=== PATIENT | male | born 1950 | race Caucasian/White ===

== ENCOUNTER 2017-11-07 09:30 | Outpatient (CLI) | payer MEDICARE, SELFPAY ==
[2017-11-07 11:14] LABS: Anion Gap 11.6 mmol/L (3-11); BUN 25 mg/dL (7-18); CO2 26.4 mmol/L (21.0-32.0); CREATININE 1.59 mg/dL (0.70-1.30); Calcium 8.4 mg/dL (8.5-10.1); Chloride 102 mmol/L (98-107); Estimated GFR 43.38 (mL/min/1.73m2); Glucose 131 mg/dL (70-100); Potassium 4.1 mmol/L (3.5-5.1); Sodium 140 mmol/L (136-145)
== END 2017-11-07 09:50 ==
PROVIDERS: PCP Family Medicine; Visit Provider Family Medicine
DX: N18.3 Chronic kidney disease, stage 3 (moderate) (principal)
CPT/HCPCS: 36415; 80048

== ENCOUNTER 2020-03-06 08:43 | Outpatient (CLI) | payer MEDICARE, SELFPAY ==
[2020-03-07 13:30] LABS: COVID-19 RT-PCR UVMMC Result Positive (Negative)
== END 2020-03-06 09:03 ==
PROVIDERS: PCP Family Medicine; Visit Provider Family Medicine
DX: Z20.822 Contact with and (suspected) exposure to COVID-19 (principal)
CPT/HCPCS: U0003

== ENCOUNTER 2020-03-08 03:26 | Outpatient (CLI) | payer MEDICARE, SELFPAY ==
[2020-03-08] VITALS (9 sets, daily range): BP systolic 106–139; BP diastolic 63–72; PULSE 87–94; RESP 16–20; TEMP 36.6–37.1; O2SAT 93–97
[2020-03-08] MEDS: Normal Saline 500 ML 30 ML IV (08:53)
[2020-03-08] MEDS: Normal Saline Flush 10 ML SYR IVP (08:54)
== END 2020-03-08 03:46 ==
PROVIDERS: PCP Family Medicine; Visit Provider Family Medicine
DX: U07.1 COVID-19 (principal)
CPT/HCPCS: 96365

== ENCOUNTER 2020-05-15 04:33 | Outpatient (CLI) | payer MEDICARE, SELFPAY ==
[2020-05-15 10:31] LABS: ALT 50 U/L (16-63); AST 19 U/L (15-37); Albumin 3.7 g/dL (3.4-5.0); Alkaline Phosphatase 93 U/L (46-116); Anion Gap 6.2 mmol/L (3-11); BUN 23 mg/dL (7-18); Bilirubin, Total 0.5 mg/dL (0.2-1.0); CO2 29.8 mmol/L (21.0-32.0); CREATININE 1.8 mg/dL (0.70-1.30); Calcium 8.6 mg/dL (8.5-10.1); Calculated LDL 38 mg/dL (<100); Chloride 105 mmol/L (98-107); Cholesterol 100 mg/dL (<200); Estimated GFR 37.27 (mL/min/1.73m2); Glucose 130 mg/dL (74-106); HDL Cholesterol 33 mg/dL (40-60); Potassium 4.3 mmol/L (3.5-5.1); Sodium 141 mmol/L (136-145); Total Protein 6.8 g/dL (6.4-8.2); Triglyceride 145 mg/dL (<150)
[2020-05-15 10:42] LABS: Uric Acid 8.2 mg/dL (3.5-7.2)
== END 2020-05-15 04:34 | disposition home or self-care (01) ==
LOC: LBO 04:33
PROVIDERS: PCP Family Medicine; Visit Provider Family Medicine
DX: E11.9 Type 2 diabetes mellitus without complications (principal); I10 Essential (primary) hypertension; M10.9 Gout, unspecified
CPT/HCPCS: 36415; 80053; 80061; 84550

== ENCOUNTER → 2021-01-29 10:24 | Outpatient (BNVA) | payer MEDICARE, SELFPAY | PROVIDERS: PCP Family Medicine; Referring Provider Family Medicine; Visit Provider Physical Therapy Assistant | DX: Z12.11 Encounter for screening for malignant neoplasm of colon (principal); Z86.010 Personal history of colon polyps; I10 Essential (primary) hypertension; E11.22 Type 2 diabetes mellitus with diabetic chronic kidney disease; N18.30 Chronic kidney disease, stage 3 unspecified ==

== ENCOUNTER 2021-02-02 02:59 | Outpatient (CLI) | payer MEDICARE, SELFPAY ==
[2021-02-02 11:13] LABS: Source Nasal/Nares
[2021-02-02 14:01] LABS: COVID-19 PCR Negative (Negative)
== END 2021-02-02 03:00 | disposition home or self-care (01) ==
LOC: LBO 03:00
PROVIDERS: PCP Family Medicine; Visit Provider Surgery
DX: Z20.822 Contact with and (suspected) exposure to COVID-19 (principal); Z01.812 Encounter for preprocedural laboratory examination
CPT/HCPCS: 87635

== ENCOUNTER 2021-02-05 08:20 | Day surgery (SDC) | payer MEDICARE, SELFPAY ==
--- NOTE | 2021-02-05 06:43 | COLE_ITS ---
Colonoscopy Report Date of procedure: 02/05/21 Pre-op diagnosis general: Hx of colon polyps Post-op diagnosis procedure note: same (multiple polyps and diverticulosis) Procedure: Colonoscopy with polypectomy Surgeon: Daniela Cummins Anesthesia Type: General:No Airway (Tin Beltre, BRANDT) Estimated blood loss (mL): 3 Pathology: other (cecal polyp, ascending polyps x3, transverse polyp) Complications: None Disposition: same day Indications: The patient is here for Colonoscopy pre-op. His last screening was in 2015 and was remarkable for tubular adenoma. He has no family history of colon cancer. He has not had any bowel habit changes. -Discussed colonoscopy bowel prep as well as the procedure. Discussed possible complications of the procedure to include bleeding, pain, perforation, missed small lesion/polyp, sore throat, aspiration and adverse reaction to the medica tions. Questions were answered to patient?s satisfaction. No guarantees were implied or given. Prep: Miralax/Dulcolax Procedure Start Time: 10:02 Procedure End Time: 11:01 Retraction Time: 42 minutes Findings: multiple sessile polyps. The cecal polyp and proximal ascending polyp were both >10 mm in size mild diverticulosis Procedure Description: After informed consent was obtained the patient was taken to the procedure room and placed in a left decubitous position. Monitors were applied and a time out was done. The patients name, date of , procedure, allergies to medications and metal in their body was reviewed. The patient was then sedated. Once sedated and comfortable a rectal exam was done. External exam was normal. Internal exam revealed a normal sphincter tone and no palpable masses. The prostate felt smooth and enlarged. The scope was then introduced and retro-flexed. No internal hemorrhoids, polyps or masses were identified on retro-flexion. The scope was then advanced to the cecum without difficulty. The ileocecal vlave and appendiceal orifice were identified. The prep was good. The scope was then slowly retracted over 42 minutes back into the rectum. Polyps were removed with hot snare in the cecum and ascending colon ad with cold forceps in the ascending colon x2 and transverse colon. There was mild descending and sigmoid diverticulosis noted. The scope was removed and the patient was woken up and taken back to Same day surgery in stable condition. The patient tolerated the procedure well and there were no immediate complications. Follow up: The patient should follow up in 1-3 years unless they develop changes in bowel habits or other new gastrointestinal complaints.
--- NOTE | 2021-02-05 06:44 | W.PM.DSUDISC ---
Discharge Plan Disposition Patient Disposition: HOME Condition: Good Discharge Details Reason For Visit: Colonoscopy Attending Provider: Daniela Cummins Primary Care Provider: Teofilo Finley Home Meds and New Rx's Prescriptions: Continued aspirin 81 mg tablet,delayed release (DR/EC) 81 mg PO DAILY Qty: 90 RF: 3 (DME) lancets [OneTouch UltraSoft Lancets] 1 EACH misc 1 ea Miscellaneous TID RF: 0 Excedrin Migraine 1 EACH tablet 1 ea PO PRN RF: 0 cholecalciferol (vitamin D3) 1,000 UNIT tablet 1,000 unit PO DAILY RF: 0 (DME) OneTouch Ultra Test 1 EACH strip 1 ea Miscellaneous DAILY Qty: 100 RF: 3 mometasone 0.1 % cream 1 applic topical DAILY PRN (Reason: itching) RF: 0 allopurinol 100 mg tablet 50 mg PO DAILY Qty: 45 RF: 3 atorvastatin 20 mg tablet 20 mg PO HS Qty: 90 RF: 3 metformin 850 mg tablet 850 mg PO BID Qty: 180 RF: 3 irbesartan-hydrochlorothiazide 150-12.5 mg tablet 1 tab PO DAILY Qty: 90 RF: 3 Discontinued polyethylene glycol 3350 17 gram/dose powder 238 g PO ONCE Qty: 238 RF: 0 bisacodyl [Dulcolax (bisacodyl)] 5 mg tablet,delayed release (DR/EC) 5 mg PO ONCE Qty: 4 RF: 0 Discharge Instructions Additional Instructions: Findings: Multiple polyps diverticulosis Follow up: will depend on final pathology Please call if you develop: fevers >101.5 Nausea or Vomiting Abdominal pain that is not transient Rectal bleeding that is more then a tbsp A hard abdomen and inability to pass gas DAY SURGERY UNIT POST ENDOSCOPY INSTRUCTIONS Instructions for everyone who is given Anesthesia: For your safety, please do the following for the next 24 Hours: a. Do not drive or operate dangerous equipment b. Do not drink alcohol beverages or use any recreational drugs for the first 24 hours or while taking pain medications. The medications in your body may have a reaction that can be dangerous. c. Do not make any important decisions or sign any important papers 1. Generally there are no restrictions on your activity after a day or so has gone by, but you may feel a bit fatigued for a few days. 2. After you arrive home you may have a light meal and return to a normal diet as you can tolerate it without feeling sick to your stomach. 3. After surgery, you may feel pain or discomfort. This should be only transient, but if it persists please contact your doctor. 4. If there are any questions regarding the findings of your procedure, please feel free to contact your doctor. 6. If you are unable to contact your doctor with a problem, contact the hospital at [phone]. 7. Continue all your regular medications unless directed otherwise. I understand the above instructions and have no questions. Signature of Patient or Responsible Adult Escort Date/Time Name of Responsible Adult Escort Signature of Nurse Date/Time Activity:: Activity as Tolerated Diet:: high fiber diet Discharge Orders Discharge Orders: Discharge Order (Routine); Ordered 02/05/21 Ordered By: Daniela Cummins
[2021-02-05 08:54] VITALS: BP 140/79; PULSE 98; RESP 16; TEMP 36.5; O2SAT 97
[2021-02-05] MEDS: Lactated Ringers 1,000 ML 80 ML IV (09:15)
--- NOTE | 2021-02-05 09:48 | ANES.PREOP_ITS ---
General Info Date of Service Date Performed: 02/05/21 Height: 5 ft 11.75 in Weight: 104 kg Body Mass Index (BMI): 31.3 Surgical Procedure: Operation Date: 02/05/21 10:05 Proposed Procedures Side Surgeon p Colonoscopy Daniela Cummins MD Meds Allergies and Home Medications Allergies Allergy/AdvReac Type Severity Reaction Status Date / Time diltiazem AdvReac Intermediate urinary Verified 02/05/21 08:49 frequency lisinopril AdvReac Intermediate COUGH Verified 02/05/21 08:49 Home Medication Medication Instructions Recorded Excedrin Migraine 1 ea PO PRN 06/03/12 lancets [OneTouch UltraSoft ea 06/03/12 Lancets] cholecalciferol (vitamin D3) 1,000 unit PO DAILY 07/19/13 MyDROBEuch Ultra Test #100 strip 05/20/14 aspirin 81 mg tablet,delayed 81 mg PO DAILY #90 tab 06/18/18 release mometasone 0.1 % topical cream 1 applic TOPICAL DAILY PRN 03/28/20 allopurinol 100 mg tablet 50 mg PO DAILY #45 tab 08/28/20 atorvastatin 20 mg tablet 20 mg PO HS #90 tab 10/16/20 metformin 850 mg tablet 850 mg PO BID #180 tab 10/16/20 irbesartan 150 1 tab PO DAILY #90 tab 11/27/20 mg-hydrochlorothiazide 12.5 mg tablet bisacodyl 5 mg tablet,delayed 5 mg PO ONCE #4 tab 01/29/21 release polyethylene glycol 3350 17 238 g PO ONCE #238 g 01/29/21 gram/dose oral powder Current Visit Medications: Current Medications Generic Name Dose Route Start Last Admin Trade Name Freq PRN Reason Stop Dose Admin Hyoscyamine Sulfate 0.125 mg 02/05/21 06:45 Hyoscyamine 0.125 Mg Sl/Oral/Chew SL DIRECTED PRN Ringer's Solution 1,000 mls @ 80 mls/hr 02/05/21 06:00 02/05/21 09:15 IV 03/04/21 23:59 80 mls/hr INFUSION REILLY Administration IV Miscellaneous Supplies 1 each 02/05/21 06:00 Iv Access IV 03/04/21 23:59 DIRECTED REILLY Ondansetron HCl 4 mg 02/05/21 06:45 Ondansetron 4 Mg/2 Ml Vial IVP Q4H PRN PRN Nausea / Vomiting Sodium Chloride 0 ml 02/05/21 06:00 Normal Saline Flush 10 Ml Syr IV 03/04/21 23:59 PRN PRN Sodium Chloride 0 ml 02/05/21 06:00 Normal Saline 10 Ml Vial IJ 03/04/21 23:59 DIRECTED PRN Sterile Water 0 ml 02/05/21 06:00 Water,Injection,Sterile 10 Ml Vial IJ 03/04/21 23:59 DIRECTED PRN PFSH Active Problems Active Problems: Problem Status Onset Code Undiagnosed cardiac murmurs 10/17/98 R01.1 Cataracts, bilateral 03/13/15 H26.9 Chronic kidney disease, stage III (moderate) 04/25/10 N18.3 Dysmetabolic syndrome X 06/16/98 E88.81 Essential hypertension 05/17/98 I10 Hyperlipidemia 06/03/11 E78.5 Other atopic dermatitis 06/03/11 L20.89 Obesity (BMI 30.0-34.9) 06/03/11 E66.9 Other atopic dermatitis 06/03/11 L20.89 Proteinuria 10/02/12 R80.9 Type 2 diabetes mellitus without complications 03/13/15 E11.9 Unspecified nontoxic nodular goiter 11/19/11 E04.9 Axillary hidradenitis suppurativa 09/20/13 L73.2 Hammer toes of both feet M20.41, M20.42 Post-void dribbling N39.43 Surgical History Surgical History (Updated 02/05/21 @ 08:57 by Nita Dexter) Colonoscopy - IV Sedation (05/19/15) Dr Thayer-fragments of tubular adenoma Hx of hand surgery L palm, work accident Tobacco Smoking/Tobacco Use Status: Former Tobacco Use Alcohol Alcohol Intake: former Substance Use Substance use: Never Substance use type: does not use Vital Signs and Lab Results Vital Signs Most Recent Vital Signs in EMR: Most Recent Vital Signs Temp Pulse Resp BP Pulse Ox 36.5 C 98 H 16 140/79 97 02/05/21 08:54 02/05/21 08:54 02/05/21 08:54 02/05/21 08:54 02/05/21 08:54 Point of Care Results Point of Care Results: Finger Stick Blood Glucose 157 02/05/21 08:32 Lab Results Blood Type / Crossmatch: No Data to Display Complete Blood Count: No Data to Display Complete Metabolic Panel: No Data to Display Liver Function Panel: No Data to Display Coagulation Panel: No Data to Display Cardiac Panel: No Data to Display Arterial Blood Gas: No Data to Display Venous Blood Gas: No Data to Display Pancreas Panel: No Data to Display Thyroid Panel: No Data to Display Infectious Disease: Coronavirus (COVID-19)(PCR) Negative (Negative) 02/02/21 09:04 02/02/21 Coronavirus 2019 Source Nasal/Nares 02/02/21 09:04 02/02/21 Blood Cultures: No Data to Display Toxicology Panel: No Data to Display Anesthesia Assessment and Plan Anesthesia History Personal History: No History of Anesthesia Complications Family History: No Family History of Anesthesia Complications Exercise Tolerance Exercise Tolerance: Metabolic Equivalents>4 Pertinent Negatives Pertinent Negatives: No Symptoms of GERD, No Major Cardiovascular Symptoms or Complaints, No Major Pulmonary Symptoms or Complaints and No History of CVA/TIA Cardiac & Pulmonary Exam Cardiac Exam: Normal S1/S2 Heart Sounds Pulmonary Exam: Clear Bilateral Breath Sounds Implantable Cardiac Device Does patient have a Pacemaker or an ICD?: No Airway Exam Known Difficult Airway: No Mallampati Class: 4 Mouth Opening: Normal (> 3cm) Thyromental Distance: Greater than 3 cm Neck Range of Motion: Full ROM Neck Circumference: Thick Teeth Condition: Normal Dentition and Edentulous ASA Classification ASA Score: ASA 2 Emergency Case?: No NPO Status NPO Status: NPO Clears >2 hours, Solids >8 hours Anesthesia Plan Resuscitation Status: Full Code Anesthesia Technique: General Anesthesia Airway Planned: Natural Airway Monitors Used: Standard Monitors
[2021-02-05 09:49] VITALS: BMI 31.3
--- NOTE | 2021-02-05 10:20 | BOWEL_PTH ---
PATIENT: Dae Marrero LOC: [facility] U#:[id number] AGE/SX: 70/M ROOM: RE02/05/[address]: Daniela Cummins MD : [id number] BED: DIS: 02/05/2021 SPEC #: [id number] RECD: 02/05/21 13:02 STATUS: JUAN F REQ #: [id number] ANTHONY: 02/05/21 10:[address]: Daniela Cummins DEPT: Surgical Specimen RECD BY: Kellie Bautista ENTERED: 02/05/21 13:03 SP TYPE: Bowel OTHR DR: Teofilo Finley DO Tissues: 1 - BIOPSY BOWEL 2 - BIOPSY BOWEL 3 - BIOPSY BOWEL 4 - BIOPSY BOWEL Procedures: GROSS AND MICRO LEVEL 4 Comments: [id number]
[2021-02-05 11:08] VITALS: BP 118/58; PULSE 79; RESP 18; TEMP 36.4; O2SAT 94
--- NOTE | 2021-02-05 11:09 | W.ANESPOSTOP ---
Postoperative Evaluation Date, Time and Location Date Performed: 02/05/21 Time Performed: 11:09 Patient Location: Day Surgery Unit Vital Signs Most Recent Imported Vital Signs: Most Recent Vital Signs Temp Pulse Resp BP Pulse Ox 36.5 C 98 H 16 140/79 97 02/05/21 08:54 02/05/21 08:54 02/05/21 08:54 02/05/21 08:54 02/05/21 08:54 Most Recent Manually Entered Vital Signs: Adult Blood Pressure: 118/58 Heart Rate: 86 Respirations: 18 Oxygen Saturation (%): 94 Temperature (C): 36 C Pain Score (0-10 Scale): 0 Pain Score Most Recent Pain Score: Most Recent Pain Score Pain Level 0 02/05/21 08:54 Assessment Mental Status: Arousable with meaningful communication Airway and Respiratory Function: Patent airway with normal (patient baseline) respiratory exam Cardiovascular Function: Hemodynamically Stable Hydration Status: Adequately Hydrated Nausea & Vomiting: No Nausea or Vomiting Pain: Pt. Denies Any Pain Peripheral Nerve Block: Patient did not receive a nerve block
[2021-02-05 11:11] VITALS: BP 118/58; PULSE 86; RESP 18; TEMPC 36; O2SAT 94
[2021-02-05 11:37] VITALS: BP 125/71; PULSE 68; RESP 18; TEMP 36.2; O2SAT 96
[2021-02-05 12:19] VITALS: BP 123/69; PULSE 65; RESP 18; TEMP 36.3; O2SAT 96
== END 2021-02-05 12:12 | disposition home or self-care (01) ==
LOC: SUR 08:21
PROVIDERS: PCP Family Medicine; Visit Provider Surgery
PROC: 0DJD8ZZ Inspection of Lower Intestinal Tract, Via Natural or Artificial Opening Endoscopic (ICD-10-PCS; CPT 45378; principal; 2021-02-05 10:00)
DX: Z12.11 Encounter for screening for malignant neoplasm of colon (principal); D12.2 Benign neoplasm of ascending colon; D12.0 Benign neoplasm of cecum; D12.3 Benign neoplasm of transverse colon; K57.30 Diverticulosis of large intestine without perforation or abscess without bleeding; I12.9 Hypertensive chronic kidney disease with stage 1 through stage 4 chronic kidney disease, or unspecified chronic kidney disease; E11.22 Type 2 diabetes mellitus with diabetic chronic kidney disease; N18.30 Chronic kidney disease, stage 3 unspecified; Z86.010 Personal history of colon polyps
CPT/HCPCS: 45385; 45380; 88305

== ENCOUNTER 2021-02-15 03:04 | Outpatient (CLI) | payer MEDICARE, SELFPAY ==
[2021-02-15 14:44] LABS: Anion Gap 7.2 mmol/L (3-11); BUN 29 mg/dL (7-18); CO2 28.8 mmol/L (21.0-32.0); CREATININE 2.1 mg/dL (0.70-1.30); Calcium 8.9 mg/dL (8.5-10.1); Chloride 105 mmol/L (98-107); Glucose 169 mg/dL (74-106); Potassium 4.4 mmol/L (3.5-5.1); Sodium 141 mmol/L (136-145)
[2021-02-16 11:47] LABS: HIV-1/2 Ag & Ab Screen Negative (Negative)
== END 2021-02-15 03:05 | disposition home or self-care (01) ==
LOC: LBO 03:04
PROVIDERS: PCP Family Medicine; Visit Provider Family Medicine
DX: E11.9 Type 2 diabetes mellitus without complications (principal); Z11.4 Encounter for screening for human immunodeficiency virus [HIV]
CPT/HCPCS: 36415; 80048; 87389

== ENCOUNTER → 2022-01-01 09:14 | Outpatient (BNVA) | payer MEDICARE, SELFPAY | PROVIDERS: PCP Family Medicine; Referring Provider Family Medicine; Visit Provider Surgery | DX: Z86.010 Personal history of colon polyps (principal); Z12.11 Encounter for screening for malignant neoplasm of colon ==

== ENCOUNTER 2022-01-21 07:29 | Day surgery (SDC) | payer MEDICARE, SELFPAY ==
--- NOTE | 2022-01-21 06:27 | COLE_ITS ---
Date of service: 01/21/22 Time of Service: : Colonoscopy Report Date of procedure: 01/21/22 Pre-op diagnosis general: Colon Cancer Screening and Hx of colon polyps Post-op diagnosis procedure note: other (multiple polyps and diverticulosis) Procedure: Colonoscopy with polypectomy Surgeon: Daniela Cummins Anesthesia Type: General:No Airway Estimated blood loss (mL): 3 Pathology: other (Ascending polyps x5, transverse polyp x2 and sigmoid polyps x9) Complications: None Disposition: same day Indications: The patient? is a pleasant? 71-year-old male who is here to discuss another screening colonoscopy. ? His last colonoscopy was in 2020 and he was noted to have a sessile serrated adenoma in the ascending colon.? He also had a tubular adenoma in the cecum, ascending colon and transverse colon.? He denies any ramirez ges in bowel habits, melena, hematochezia, unintentional weight loss or family history of colon cancer.? The procedure and risks were discussed.? The prep was reviewed in detail.? Risks, benefits and complications have been reviewed. Complications include but are not limited to bleeding, pain, perforation, missed small lesion/polyp, sore throat, aspiration and adverse reaction to the medications. Questions were entertained and answered to their satisfaction and they wished to proceed. No guarantees were given or implied. Prep: Miralax/Dulcolax Procedure Start Time: Procedure End Time: 10:17 Retraction Time: 44 minutes Findings: multiple small polyps, all sessile moderate sigmoid diverticulosis Procedure Description: After informed consent was obtained the patient was taken to the procedure room and placed in a left decubitous position. Monitors were applied and a time out was done. The patients name, date of , procedure, allergies to medications and metal in their body was reviewed. The patient was then sedated. Once sedated and comfortable a rectal exam was done. External exam was normal. Internal exam revealed a normal sphincter tone and no palpable masses. The prostate felt smooth. The scope was then introduced and retro-flexed. No internal hemorrhoids, polyps or masses were identified on retro-flexion. The scope was then advanced to the cecum without difficulty. The ileocecal vlave and appendiceal orifice were identified. The prep was good. The scope was then slowly retracted over 44 minutes back into the rectum. Polyps were removed with cold forceps in the ascending colon x3, transverse colon x2 and sigmoid colon x9 and with cold snare in the ascending colon x2. There was moderate sigmoid diverticulosis noted. The scope was removed and the patient was woken up and taken back to Same day surgery in stable condition. The patient tolerated the procedure well and there were no immediate complications.
--- NOTE | 2022-01-21 06:28 | W.PM.DSUDISC ---
Date of service: 01/21/22 Time of Service: 10:27 Discharge Plan Disposition Patient Disposition: HOME Condition: Good Discharge Details Reason For Visit: Colonoscopy Attending Provider: Daniela Cummins Primary Care Provider: Teofilo Finley Home Meds and New Rx's Prescriptions: Continued (DME) lancets [OneTouch UltraSoft Lancets] 1 EACH misc 1 ea Miscellaneous TID Label Comments: pt. took BS at home, 167 Excedrin Migraine 1 EACH tablet 1 ea PO PRN cholecalciferol (vitamin D3) 1,000 UNIT tablet 1,000 unit PO DAILY (DME) OneTouch Ultra Test 1 EACH strip 1 ea Miscellaneous DAILY Qty: 100 Rx Instructions: 790.29; 277.7 Monitor abnormal blood sugar mometasone 0.1 % cream 1 applic topical DAILY PRN (Reason: itching) Rx Instructions: 03/28/20 Prescribed by ENT, Dr Zapata. Apply to affected area to ears daily prn allopurinol 100 mg tablet 50 mg PO DAILY Qty: 45 3RF irbesartan-hydrochlorothiazide 150-12.5 mg tablet 1 tab PO DAILY Qty: 90 3RF metformin 850 mg tablet 850 mg PO BID Qty: 180 3RF atorvastatin 20 mg tablet 20 mg PO HS Qty: 90 3RF Discontinued bisacodyl [Dulcolax (bisacodyl)] 5 mg tablet,delayed release (DR/EC) 5 mg PO ONCE Qty: 4 0RF Rx Instructions: Take according to provider's instructions for colonoscopy prep. peg 3350-electrolytes [Golytely] 236-22.74-6.74 -5.86 gram recon soln 240 ml PO Q10M Qty: 4000 0RF Rx Instructions: until fecal effluent is clear Discharge Instructions Instructions: Colorectal Polyps (DC), Diverticulosis (DC) Additional Instructions: Findings: multiple polyps diverticulosis Follow up: 3-5 years Please call if you develop: fevers >101.5 Nausea or Vomiting Abdominal pain that is not transient Rectal bleeding that is more then a tbsp A hard abdomen and inability to pass gas DAY SURGERY UNIT POST ENDOSCOPY INSTRUCTIONS Instructions for everyone who is given Anesthesia: For your safety, please do the following for the next 24 Hours: a. Do not drive or operate dangerous equipment b. Do not drink alcohol beverages or use any recreational drugs for the first 24 hours or while taking pain medications. The medications in your body may have a reaction that can be dangerous. c. Do not make any important decisions or sign any important papers 1. Generally there are no restrictions on your activity after a day or so has gone by, but you may feel a bit fatigued for a few days. 2. After you arrive home you may have a light meal and return to a normal diet as you can tolerate it without feeling sick to your stomach. 3. After surgery, you may feel pain or discomfort. This should be only transient, but if it persists please contact your doctor. 4. If there are any questions regarding the findings of your procedure, please feel free to contact your doctor. 6. If you are unable to contact your doctor with a problem, contact the hospital at [phone]. 7. Continue all your regular medications unless directed otherwise. I understand the above instructions and have no questions. Signature of Patient or Responsible Adult Escort Date/Time Name of Responsible Adult Escort Signature of Nurse Date/Time Activity:: Activity as Tolerated Diet:: As Tolerated
[2022-01-21 07:56] VITALS: BP 155/76; PULSE 75; RESP 16; TEMP 36; O2SAT 98
[2022-01-21] MEDS: Normal Saline 1,000 ML 80 ML IV (08:25)
--- NOTE | 2022-01-21 09:02 | ANES.PREOP_ITS ---
General Info Date of Service Date Performed: 01/21/22 Height: 5 ft 11.75 in Weight: 97.2 kg Body Mass Index (BMI): 29.2 Surgical Procedure: Operation Date: 01/21/22 09:05 Proposed Procedure Side Surgeon p Colonoscopy Daniela Cummins MD Meds Allergies and Home Medications Allergies Allergy/AdvReac Type Severity Reaction Status Date / Time diltiazem AdvReac Intermediate urinary Verified 01/21/22 08:02 frequency lisinopril AdvReac Intermediate COUGH Verified 01/21/22 08:02 Home Medication Medication Instructions Recorded [id number]-dzbuxesi 250 1 ea PO PRN 06/03/12 mg-250 mg-65 mg tablet (Excedrin Migraine) lancets (TTi [employer] InstrumentsTouch UltraSoft 06/03/12 Lancets) cholecalciferol (vitamin D3) 25 1,000 unit PO DAILY 07/19/13 mcg (1,000 unit) tablet blood sugar diagnostic (TTi [employer] InstrumentsTouch #100 strips 05/20/14 Ultra Test strips) mometasone 0.1 % topical cream 1 applic topical DAILY PRN itching 03/28/20 allopurinol 100 mg tablet 50 mg PO DAILY #45 tabs 08/09/21 irbesartan 150 1 tab PO DAILY #90 tabs 11/24/21 mg-hydrochlorothiazide 12.5 mg tablet atorvastatin 20 mg tablet 20 mg PO HS #90 tabs 12/31/21 metformin 850 mg tablet 850 mg PO BID #180 tabs 12/31/21 bisacodyl 5 mg tablet,delayed 5 mg PO ONCE #4 tabs 01/01/22 release (Dulcolax (bisacodyl)) peg 3350-electrolytes 236 240 ml PO Q10M colonoscopy prep 01/01/22 gram-22.74 gram-6.74 gram-5.86 #4,000 mL gram solution (Golytely) Current Visit Medications: Current Medications Generic Name Dose Route Start Last Admin Trade Name Freq PRN Reason Stop Dose Admin Hyoscyamine Sulfate 0.125 mg 01/21/22 06:29 Hyoscyamine 0.125 Mg Sl/Oral/Chew SL DIRECTED PRN Sodium Chloride 1,000 mls @ 80 mls/hr 01/21/22 06:00 01/21/22 08:25 Saline 1000ml Bag IV 02/01/22 23:59 80 mls/hr INFUSION REILLY Administration IV Miscellaneous Supplies 1 each 01/21/22 06:00 Iv Access IV 02/17/22 23:59 DIRECTED REILLY Ondansetron HCl 4 mg 01/21/22 06:29 Ondansetron 4 Mg/2 Ml Vial IVP Q4H PRN PRN Nausea / Vomiting Sodium Chloride 0 ml 01/21/22 06:00 Normal Saline Flush 10 Ml Syr IV 02/17/22 23:59 PRN PRN Sodium Chloride 0 ml 01/21/22 06:00 Normal Saline 10 Ml Vial IJ 02/17/22 23:59 DIRECTED PRN Sterile Water 0 ml 01/21/22 06:00 Water,Injection,Sterile 10 Ml Vial IJ 02/17/22 23:59 DIRECTED PRN PFSH Active Problems Active Problems: Problem Status Onset Code Screening for colon cancer Z12.11 Stiffness of right hip joint M25.651 Epidermoid cyst L72.0 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 Sessile colonic polyp K63.5 Undiagnosed cardiac murmurs 10/17/98 R01.1 Cataracts, bilateral 03/13/15 H26.9 Chronic kidney disease, stage III (moderate) 04/25/10 N18.3 Dysmetabolic syndrome X 06/16/98 E88.81 Hyperlipidemia 06/03/11 E78.5 Other atopic dermatitis 06/03/11 L20.89 Obesity (BMI 30.0-34.9) 06/03/11 E66.9 Proteinuria 10/02/12 R80.9 Type 2 diabetes mellitus without complications 03/13/15 E11.9 Unspecified nontoxic nodular goiter 11/19/11 E04.9 Axillary hidradenitis suppurativa 09/20/13 L73.2 Hammer toes of both feet M20.41, M20.42 Post-void dribbling N39.43 Medical History Medical History Essential hypertension (05/17/98) GOAL <130/80 Other atopic dermatitis (06/03/11) Surgical History Surgical History Colonoscopy - IV Sedation (05/19/15) 01/2021- Placido Thayer-fragments of tubular adenoma H/O removal of cyst (~10/2021) 10/30/21 follicular cyst mid back Hx of hand surgery L palm, work accident Tobacco Smoking/Tobacco Use Status: Former Tobacco Use Passive smoking exposure: No Alcohol Alcohol Intake: former Substance Use Substance use: Never Substance use type: does not use Vital Signs and Lab Results Vital Signs Most Recent Vital Signs in EMR: Most Recent Vital Signs Temp Pulse Resp BP Pulse Ox 36.0 C L 75 16 155/76 H 98 01/21/22 07:56 01/21/22 07:56 01/21/22 07:56 01/21/22 07:56 01/21/22 07:56 Point of Care Results Point of Care Results: Finger Stick Blood Glucose 126 01/21/22 07:52 Lab Results Blood Type / Crossmatch: No Data to Display Complete Blood Count: No Data to Display Complete Metabolic Panel: No Data to Display Liver Function Panel: No Data to Display Coagulation Panel: No Data to Display Cardiac Panel: No Data to Display Arterial Blood Gas: No Data to Display Venous Blood Gas: No Data to Display Pancreas Panel: No Data to Display Thyroid Panel: No Data to Display Infectious Disease: No Data to Display Blood Cultures: No Data to Display Toxicology Panel: No Data to Display Anesthesia Assessment and Plan Anesthesia History Personal History: No History of Anesthesia Complications Family History: No Family History of Anesthesia Complications Exercise Tolerance Exercise Tolerance: Metabolic Equivalents>4 Cardiac & Pulmonary Exam Cardiac Exam: Normal S1/S2 Heart Sounds Pulmonary Exam: Clear Bilateral Breath Sounds Implantable Cardiac Device Does patient have a Pacemaker or an ICD?: No Airway Exam Known Difficult Airway: No Mallampati Class: 4 Mouth Opening: Normal (> 3cm) Thyromental Distance: Greater than 3 cm Neck Range of Motion: Full ROM Neck Circumference: Thick Teeth Condition: Normal Dentition and Edentulous ASA Classification ASA Score: ASA 2 Emergency Case?: No NPO Status NPO Status: NPO Clears >2 hours, Solids >8 hours Anesthesia Plan Resuscitation Status: Full Code Anesthesia Technique: General Anesthesia Airway Planned: Natural Airway Monitors Used: Standard Monitors
[2022-01-21 09:06] VITALS: BMI 29.2
--- NOTE | 2022-01-21 09:35 | BOWEL_PTH ---
PATIENT: Dae Marrero LOC: [facility] U#:[id number] AGE/SX: 71/M ROOM: RE01/21/[address]: Daniela Cummins MD : [id number] BED: DIS: 01/21/2022 SPEC #: [id number] RECD: 01/21/22 12:51 STATUS: JUAN F REQ #: [id number] ANTHONY: 01/21/22 09:[address]: Daniela Cummins DEPT: Surgical Specimen RECD BY: Kellie Bautista ENTERED: 01/21/22 12:52 SP TYPE: Bowel OTHR DR: Teofilo Finley DO Tissues: 1 - BIOPSY BOWEL 2 - BIOPSY BOWEL 3 - BIOPSY BOWEL Procedures: GROSS AND MICRO LEVEL 4 Comments: [id number]
[2022-01-21 10:25] VITALS: BP 131/75; PULSE 71; RESP 18; TEMP 36.4; O2SAT 97
--- NOTE | 2022-01-21 10:26 | W.ANESPOSTOP ---
Postoperative Evaluation Date, Time and Location Date Performed: 01/21/22 Time Performed: 10:26 Patient Location: Day Surgery Unit Vital Signs Most Recent Imported Vital Signs: Most Recent Vital Signs Temp Pulse Resp BP Pulse Ox 36.0 C L 75 16 155/76 H 98 01/21/22 07:56 01/21/22 07:56 01/21/22 07:56 01/21/22 07:56 01/21/22 07:56 Most Recent Manually Entered Vital Signs: Adult Blood Pressure: 131/75 Heart Rate: 71 Respirations: 12 Oxygen Saturation (%): 97 Temperature (C): 36.3 C Pain Score (0-10 Scale): 0 Pain Score Most Recent Pain Score: Most Recent Pain Score Pain Level 0 01/21/22 07:56 Assessment Mental Status: Awake (Alert & Oriented to Patient Baseline) Airway and Respiratory Function: Patent airway with normal (patient baseline) respiratory exam Cardiovascular Function: Hemodynamically Stable Hydration Status: Adequately Hydrated Nausea & Vomiting: No Nausea or Vomiting Pain: Pt. Denies Any Pain Peripheral Nerve Block: Patient did not receive a nerve block
[2022-01-21 10:28] VITALS: BP 131/75; PULSE 71; RESP 12; TEMPC 36.3; O2SAT 97
[2022-01-21 10:52] VITALS: BP 155/81; PULSE 60; RESP 18; TEMP 36.3; O2SAT 98
== END 2022-01-21 11:07 | disposition home or self-care (01) ==
PROVIDERS: PCP Family Medicine; Visit Provider Surgery
PROC: 0DJD8ZZ Inspection of Lower Intestinal Tract, Via Natural or Artificial Opening Endoscopic (ICD-10-PCS; CPT 45378; principal; 2022-01-21 09:00)
DX: Z12.11 Encounter for screening for malignant neoplasm of colon (principal); K63.5 Polyp of colon; K57.30 Diverticulosis of large intestine without perforation or abscess without bleeding; Z86.010 Personal history of colon polyps
CPT/HCPCS: 45385; 45380; 88305; J2704

== ENCOUNTER 2022-04-23 03:26 | Outpatient (CLI) | payer MEDICARE, SELFPAY ==
[2022-04-23 08:04] LABS: Anion Gap 9.5 mmol/L (3-11); BUN 28 mg/dL (7-18); CO2 27.5 mmol/L (21.0-32.0); CREATININE 2.1 mg/dL (0.70-1.30); Calcium 9.2 mg/dL (8.5-10.1); Chloride 104 mmol/L (98-107); Estimated GFR 32.42 (mL/min/1.73m2); Glucose 145 mg/dL (74-106); Potassium 4.2 mmol/L (3.5-5.1); Sodium 141 mmol/L (136-145)
== END 2022-04-23 03:27 | disposition home or self-care (01) ==
PROVIDERS: PCP Family Medicine; Visit Provider Family Medicine
DX: N18.30 Chronic kidney disease, stage 3 unspecified (principal); E11.9 Type 2 diabetes mellitus without complications; I10 Essential (primary) hypertension
CPT/HCPCS: 36415; 80048

== ENCOUNTER 2022-05-16 01:14 | Outpatient (CLI) | payer MEDICARE, SELFPAY ==
--- NOTE | 2022-05-16 07:00 | DI.US_ITS ---
Exam(s) US THYROID EXAM: US THYROID CLINICAL HISTORY: assess for change,thyroid nodule, e04.1. TECHNIQUE: Ultrasound thyroid performed using standard protocol. COMPARISON: US US THYROID/NECK/HEAD from 02/27/2012 US RENAL ULTRASOUND from 10/12/2012 US AAA SCREENING from 04/25/2015 FINDINGS: ISTHMUS: 2 mm RIGHT LOBE: Size: 6.4 by 1.6 x 3.1 cm Echogenicity: Extremely heterogeneous Vascularity: Normal. Nodules: Nodules noted throughout. LEFT LOBE: Size: 5.5 x 2.0 x 2.6 cm cm Echogenicity: Extremely heterogeneous. Vascularity: Normal. Nodules: Innumerable confluent nodules. OTHER FINDINGS: No abnormal cervical lymph nodes. IMPRESSION: Findings consistent with multinodular thyroid. Nodules are difficult to identify discretely for accu rate measurement and TI-RADS assessment. No dominant suspicious nodule. DATA REPOSITORY:
== END 2022-05-16 01:34 ==
LOC: DI 01:15
PROVIDERS: PCP Family Medicine; Visit Provider Otolaryngology
DX: E04.2 Nontoxic multinodular goiter (principal)
CPT/HCPCS: 76536

== ENCOUNTER 2022-07-13 07:07 | Emergency (ER) | payer MEDICARE, SELFPAY ==
[2022-07-13 07:12] VITALS: BP 148/81; PULSE 95; RESP 18; TEMP 36.8; O2SAT 96
--- NOTE | 2022-07-13 07:15 | DI.RAD_ITS ---
Exam(s) XR ANKLE LT COMPLETE EXAM: XR ANKLE LT COMPLETE CLINICAL HISTORY: twisted ankle pain both medial and lateral. TECHNIQUE: 2D digital imaging was performed. COMPARISON: No exams were available for comparison FINDINGS: 3 views No evidence of acute fracture or widening of the ankle mortise. Talar dome unremarkable. No degener ative changes evident in the ankle and subtalar joints. No inferior calcaneal spur. Small enthesoph yte noted at the Achilles insertion on the posterior calcaneus. IMPRESSION: No acute osseous findings. Mild soft tissue swelling laterally. DATA REPOSITORY: RADIATION DOSE DELIVERED:
--- NOTE | 2022-07-13 07:31 | ED.GENADUL_ITS ---
Discharge Plan Discharge Details Chief Complaint: Orthopedic Primary Care Provider: Teofilo Finley ED Provider: Peterson Kerr Home Meds and New Rx's Prescriptions: No Action mometasone 0.1 % cream 1 applic topical DAILY PRN (Reason: itching) Qty: 15 2RF Rx Instructions: 03/28/20 Prescribed by ENT, Dr Zapata. Apply to affected area to ears daily prn (DME) lancets [OneTouch UltraSoft Lancets] 1 EACH misc 1 ea Miscellaneous TID Patient Comments: pt. took BS at home, 167 Excedrin Migraine 1 EACH tablet 1 ea PO PRN cholecalciferol (vitamin D3) 1,000 UNIT tablet 1,000 unit PO DAILY (DME) OneTouch Ultra Test 1 EACH strip 1 ea Miscellaneous DAILY Qty: 100 Rx Instructions: 790.29; 277.7 Monitor abnormal blood sugar allopurinol 100 mg tablet 50 mg PO DAILY Qty: 45 3RF irbesartan-hydrochlorothiazide 150-12.5 mg tablet 1 tab PO DAILY Qty: 90 3RF metformin 850 mg tablet 850 mg PO BID Qty: 180 3RF atorvastatin 20 mg tablet 20 mg PO HS Qty: 90 3RF Medical Decision Making 72-year-old male presents today for left ankle pain. Patient states that about 3 days ago he twisted his left ankle while walking. There was some mild pain at that time but he continued to walk on it. Starting last night the pain got notably worse, and he developed swelling in the ankle. Pain is worse with movement. Improved by Excedrin migraine relief medication. He denies numbness or tingling. He denies any additional traumas. He states that if he starts walking on it it is notably painful but if he continues it gradually improves slightly throughout the day. He denies fever or chills. No other complaints at this time. No other modifying factors. Physical exam demonstrates swelling at the ankle for lateral medial aspects, pain and tenderness inferior to the lateral malleoli as well as some mild pain at the medial malleoli. Worsening pain with inversion and eversion. No significant pain with plantar or dorsiflexion. Ankle is stable otherwise. Concern for small fracture. We will get an x-ray, give NSAID, monitor closely and reassess. Patient will be signed out to my colleague Dr. Taveras for follow- up on imaging. HPI General Date/Time Provider Initiated Documentation: 07/13/22 07:24 . HPI Narrative: 72-year-old male presents today for left ankle pain. Patient states that about 3 days ago he twisted his left ankle while walking. There was some mild pain at that time but he continued to walk on it. Starting last night the pain got notably worse, and he developed swelling in the ankle. Pain is worse with movement. Improved by Excedrin migraine relief medication. He denies numbness or tingling. He denies any additional traumas. He states that if he starts walking on it it is notably painful but if he continues it gradually improves slightly throughout the day. He denies fever or chills. No other complaints at this time. No other modifying factors. Related Data Home Medications Medication Instructions Recorded Confirmed [id number] 250 1 ea PO PRN 06/03/12 07/13/22 mg-250 mg-65 mg tablet (Excedrin Migraine) lancets (OneTouch UltraSoft 06/03/12 07/13/22 Lancets) cholecalciferol (vitamin D3) 25 1,000 unit PO DAILY 07/19/13 07/13/22 mcg (1,000 unit) tablet blood sugar diagnostic (Spikes [employer] #100 strips 05/20/14 07/13/22 Ultra Test strips) allopurinol 100 mg tablet 50 mg PO DAILY #45 tabs 08/09/21 07/13/22 irbesartan 150 1 tab PO DAILY #90 tabs 11/24/21 07/13/22 mg-hydrochlorothiazide 12.5 mg tablet atorvastatin 20 mg tablet 20 mg PO HS #90 tabs 12/31/21 07/13/22 metformin 850 mg tablet 850 mg PO BID #180 tabs 12/31/21 07/13/22 mometasone 0.1 % topical cream 1 applic topical DAILY PRN itching 04/02/22 07/13/22 #15 grams Previous Rx's Medication Instructions Recorded allopurinol 100 mg tablet 50 mg PO DAILY #45 tabs 08/09/21 irbesartan 150 1 tab PO DAILY #90 tabs 11/24/21 mg-hydrochlorothiazide 12.5 mg tablet atorvastatin 20 mg tablet 20 mg PO HS #90 tabs 12/31/21 metformin 850 mg tablet 850 mg PO BID #180 tabs 12/31/21 mometasone 0.1 % topical cream 1 applic topical DAILY PRN itching 04/02/22 #15 grams Allergies Allergy/AdvReac Type Severity Reaction Status Date / Time diltiazem AdvReac Intermediate urinary Verified 07/13/22 07:17 frequency lisinopril AdvReac Intermediate COUGH Verified 07/13/22 07:17 General Stated Complaint: Orthopedic [place]: 4 Review of Systems All systems reviewed & are unremarkable except as noted in HPI and below PFSH All Active Problems Chronic eczematoid otitis externa of both ears (Acute) Thyroid nodule (Acute) Hyperplastic colon polyp (Acute ~01/21/22) Colon sigmoid, Polyps x9 Tubular adenoma of colon (Acute ~01/21/22) Colon ascending, Fragments of tubular adenoma x Colon transverse, Tubular adenoma x2 Screening for colon cancer (Acute) Stiffness of right hip joint (Acute) Epidermoid cyst (Acute) Compound nevus of face (Acute) Sessile colonic polyp (Acute 01/21/22) Colon, ascending Fragments of sessile adenoma Undiagnosed cardiac murmurs (Chronic 10/17/98) Cataracts, bilateral (Chronic 03/13/15) Chronic kidney disease, stage III (moderate) (Chronic 04/25/10) Dr Combs 12/16/12, proteinuria confirmed, L kidney smaller, good control, fluctuation due to NSAID Dysmetabolic syndrome X (Chronic 06/16/98) FBS 127 11/19/11; high TG; BP rx Hyperlipidemia (Chronic 06/03/11) high TG but <200; low HDL; total 156 Other atopic dermatitis (Chronic 06/03/11) Obesity (BMI 30.0-34.9) (Chronic 06/03/11) goal: 235 Proteinuria (Chronic 10/02/12) prot/cr ratio 0.62 09/2012 (nl <0.2, low grade 0.2-1.0); 934 mg/24 hr 09/2012 (nl <166): low grade; micral 499 DH 11/2012; 436 05/2013; imp 07/2014 on ARB Type 2 diabetes mellitus without complications (Chronic 03/13/15) multiple home FS > 140; highest A1c 9.1 Unspecified nontoxic nodular goiter (Chronic 11/19/11) 13 mm thyroid cyst/nodule seen on Chest CT 11/2011; GOITER, F/U MARIANARenea MCKENNA; f/u yearly Dr Mckenna Axillary hidradenitis suppurativa (Acute 09/20/13) Hammer toes of both feet (Acute) Post-void dribbling (Acute) Medical History Essential hypertension (05/17/98) GOAL <130/80 Other atopic dermatitis (06/03/11) Surgical History Colonoscopy - IV Sedation (05/19/15) 01/2021- Placido Thayer-fragments of tubular adenoma H/O removal of cyst (~10/2021) 10/30/21 follicular cyst mid back Hx of hand surgery L palm, work accident Family History Mother , DM,renal disease at age 60. Diabetes Father , unknown at age 82. No problems noted. Sister Age: 71 No problems noted. Brother Age: 66 No problems noted. Social History Smoking/Tobacco Use Status: Former Tobacco Use Quit Date: 02/17/98 Quit status: quit date established Smoking risk assessment performed?: Yes Alcohol Intake: former Drug use: Never Substance use type: does not use Adopted: No Household members: spouse Housing: house Number of Children: 2 current occupation: RETIRED Pets and animals: Yes What is your relationship status?: Panel score (0-1 are the most socially isolated patients): 0 What type of physical activity do you participate in: aerobic and other Details: treadmill Duration: 30-45 minutes/day Frequency: 3-4 times per week Seatbelt use: always Drive intox or ride w/intox airport shuttle driver: No Working smoke detector in home: Yes Carbon monox detector in home: Yes Do you feel safe at home: Yes Do you feel safe in your relationship?: Yes Additional Social history: pt. states he lost his to Covid last February Exam Narrative Exam Narrative: 1.Const: Well-nourished, Well-developed, appearing stated age 2.Eyes: PERRL, no conjunctival injection, and symmetrical lids. 3.ENT: Atraumatic external nose and ears. Moist MM. Neck: Symmetric, trachea midline, No thyromegaly. 4.CVS: +S1/S2, No murmurs or gallops. Peripheral pulses 2+ and equal in all extremities. Brisk capillary refill in all extremities. 5.RESP: Unlabored respiratory effort. Clear to auscultation bilaterally. No wheezes rales or rhonchi 6.GI: Soft, Nontender/Nondistended, No hepatosplenomegaly. No guarding or rebound. 7.MSK: Left ankle demonstrates swelling at the medial and lateral malleoli. Tenderness just inferior to the lateral malleoli, as well as mild tenderness at the medial malleolus. No tarsal metatarsal or phalangeal tenderness. No tenderness in the mid or proximal tib/fib. No significant joint laxity for the ankle. Normal strength with plantar and dorsiflexion with mild pain for those movements. Pain is present for inversion and eversion of the ankle. 8.Skin: Warm, Dry. No rashes or lesions. 9.Neuro: caseworker II-XII grossly intact. Sensation grossly intact, no focal neurologic deficits. 10.Psych: (AAO) x3. Appropriate mood and affect Course Vital Signs Vital signs: Vital Signs Temperature 36.8 C 07/13/22 07:12 Pulse 95 H 07/13/22 07:12 Respiratory Rate 18 07/13/22 07:12 Blood Pressure 148/81 H 07/13/22 07:12 Pulse Oximetry 96 07/13/22 07:12 Temperature 36.8 C 07/13/22 07:12 Temperature Source Temporal Artery Scan 07/13/22 07:12 Pulse 95 H 07/13/22 07:12 Respiratory Rate 18 07/13/22 07:12 Respiratory Effort Normal 07/13/22 07:15 Blood Pressure 148/81 H 07/13/22 07:12 Blood Pressure Position Sitting 07/13/22 07:12 Pulse Oximetry 96 07/13/22 07:12 Oxygen Delivery Method Room Air 07/13/22 07:12 Oxygen Flow Rate 0 07/13/22 07:12 Pain Level 9 07/13/22 07:15
[2022-07-13] MEDS: Ibuprofen 800 MG TAB PO (07:39)
--- NOTE | 2022-07-13 08:08 | DI.VRAD_ITS ---
PROCEDURE INFORMATION: Exam: XR Left Ankle Exam date and time: 07/13/2022 7:44 AM Age: 72 years old Clinical indication: Pain; Ankle; Left TECHNIQUE: Imaging protocol: Radiologic exam of the left ankle. Views: 3 or more views. COMPARISON: No relevant prior studies available. FINDINGS: Bones/joints: There is no evidence of acute fracture.There is no evidence of malalignment or dislocation. Soft tissues: Mild bimalleolar soft tissue swelling IMPRESSION: There is no evidence of acute fracture.There is no evidence of malalignment or dislocation. Dictated and Authenticated by: Yessenia Fleming MD. Ordering:ROSITA Winkler MD
--- NOTE | 2022-07-13 08:32 | W.EDPROG ---
Date of service: 07/13/22 Time of Service: 08:32 Medical Decision Making xray unremarkable. HE localizes the pain to the lateral left ankle, intact rom and sensation and pulses. No erythema or warmth to suggest infectious etiology. Suspect sprain, will provide walking boot and crutches to use as needed. Advised to f/u with pcp in a week if not improving, return precautions given Differential Diagnosis Differential Diagnosis: sprain, strain Imaging Data Radiologic Study: Attestation: I personally reviewed and interpreted this imaging study as follows: Imaging: X-Ray Radiologist's impression: PROCEDURE INFORMATION: Exam: XR Left Ankle Exam date and time: 07/13/2022 7:44 AM Age: 72 years old Clinical indication: Pain; Ankle; Left TECHNIQUE: Imaging protocol: Radiologic exam of the left ankle. Views: 3 or more views. COMPARISON: No relevant prior studies available. FINDINGS: Bones/joints: There is no evidence of acute fracture.There is no evidence of malalignment or dislocation. Soft tissues: Mild bimalleolar soft tissue swelling IMPRESSION: There is no evidence of acute fracture.There is no evidence of malalignment or dislocation. Sign Out Sign Out Data: Sign Out Comment: Follow-up on ankle x-ray Last updated by Peterson Kerr DO at 07/13/22 08:12 Discharge Plan Disposition Patient Disposition: Home Discharge Details Clinical Impression: Sprain of ankle, left Primary Care Provider: Teofilo Finley ED Provider: Oscar Taveras Home Meds and New Rx's Prescriptions: Continued mometasone 0.1 % cream 1 applic topical DAILY PRN (Reason: itching) Qty: 15 2RF Rx Instructions: 03/28/20 Prescribed by ENT, Dr Zapata. Apply to affected area to ears daily prn (DME) lancets [OneTouch UltraSoft Lancets] 1 EACH misc 1 ea Miscellaneous TID Patient Comments: pt. took BS at home, 167 Excedrin Migraine 1 EACH tablet 1 ea PO PRN cholecalciferol (vitamin D3) 1,000 UNIT tablet 1,000 unit PO DAILY (DME) OneTouch Ultra Test 1 EACH strip 1 ea Miscellaneous DAILY Qty: 100 Rx Instructions: 790.29; 277.7 Monitor abnormal blood sugar allopurinol 100 mg tablet 50 mg PO DAILY Qty: 45 3RF irbesartan-hydrochlorothiazide 150-12.5 mg tablet 1 tab PO DAILY Qty: 90 3RF metformin 850 mg tablet 850 mg PO BID Qty: 180 3RF atorvastatin 20 mg tablet 20 mg PO HS Qty: 90 3RF Discharge Instructions Instructions: Ankle Sprain (ED) Additional Instructions: your xray did not show any broken bones If pain and swelling hasn't improved within a week follow up with your primary care provider if you feel more ill, have severe worsening pain or fevers return to the emergency department
--- NOTE | 2022-07-18 11:33 | NUR.NOTE ---
Nursing Note: Accessed pt chart to print the provider note for [facility], billing.
== END 2022-07-13 08:57 | disposition home or self-care (01) ==
PROVIDERS: Emergency Provider Emergency Medicine; PCP Family Medicine
DX: S93.402A Sprain of unspecified ligament of left ankle, initial encounter (principal); X58.XXXA Exposure to other specified factors, initial encounter
CPT/HCPCS: 99283; 73610

== ENCOUNTER → 2022-11-01 00:40 | Outpatient (CLI) | payer MEDICARE, SELFPAY ==
--- NOTE | 2022-11-01 07:15 | DI.RAD_ITS ---
Exam(s) XR FOOT LT COMPLETE EXAM: XR FOOT LT COMPLETE CLINICAL HISTORY: Bunion,pain,m21.612. TECHNIQUE: 2D digital imaging was performed of the left foot. Three images were obtained. AP, obli que and lateral views were obtained. COMPARISON: No exams were available for comparison FINDINGS: BONES: No acute fracture is present. There is a hallux valgus deformity. Hammertoe deformities of th e 2nd, 3rd and 4th toes are noted. Benign-appearing cyst is seen in the head of the 1st metatarsal b one. There is a small enthesophyte at the posterior calcaneus. JOINTS: No dislocation present. Degenerative changes are seen in the foot particularly at the 1st MTP joint. SOFT TISSUE: Normal. IMPRESSION: Chronic changes of the foot as described above. DATA REPOSITORY: RADIATION DOSE DELIVERED:
--- NOTE | 2022-11-01 07:15 | DI.RAD_ITS ---
Exam(s) XR FOOT RT COMPLETE EXAM: XR FOOT RT COMPLETE CLINICAL HISTORY: Bunion right foot,m21.611. TECHNIQUE: 2D digital imaging was performed of the right foot. Three images were obtained. AP, obl ique and lateral views were obtained. COMPARISON: No exams were available for comparison FINDINGS: BONES: No acute fracture is present. No bony destructive lesion is seen. There is an enthesophyte at the posterior calcaneus. There is a small plantar calcaneal spur. There is some overlapping of the 3rd, 4th and 5th toes. JOINTS: No dislocation present. There is mild joint space narrowing of the 1st MTP joint. SOFT TISSUE: Normal. IMPRESSION: Chronic changes of the right foot as described. DATA REPOSITORY: RADIATION DOSE DELIVERED:
== END ==
PROVIDERS: PCP Family Medicine; Visit Provider Podiatrist
DX: M21.611 Bunion of right foot (principal); M21.612 Bunion of left foot
CPT/HCPCS: 73630

== ENCOUNTER → 2023-04-14 08:48 | Outpatient (BNVA) | payer MEDICARE, SELFPAY | PROVIDERS: PCP Family Medicine; Referring Provider Family Medicine; Visit Provider Podiatrist | DX: E11.40 Type 2 diabetes mellitus with diabetic neuropathy, unspecified; M20.41 Other hammer toe(s) (acquired), right foot; M20.42 Other hammer toe(s) (acquired), left foot | CPT/HCPCS: 99213 ==

== ENCOUNTER → 2023-08-06 09:02 | Outpatient (BNVA) | payer MEDICARE, SELFPAY | PROVIDERS: PCP Family Medicine; Referring Provider Family Medicine; Visit Provider Podiatrist | DX: E11.40 Type 2 diabetes mellitus with diabetic neuropathy, unspecified; M20.41 Other hammer toe(s) (acquired), right foot; M20.42 Other hammer toe(s) (acquired), left foot | CPT/HCPCS: 99213 ==

== ENCOUNTER → 2023-09-11 11:24 | Outpatient (BNVA) | payer MEDICARE, SELFPAY | PROVIDERS: PCP Family Medicine; Referring Provider Family Medicine; Visit Provider Podiatrist | DX: M79.671 Pain in right foot (principal); M20.41 Other hammer toe(s) (acquired), right foot; Z87.39 Personal history of other diseases of the musculoskeletal system and connective tissue; E79.0 Hyperuricemia without signs of inflammatory arthritis and tophaceous disease; L03.031 Cellulitis of right toe; N18.9 Chronic kidney disease, unspecified; E11.9 Type 2 diabetes mellitus without complications; G62.9 Polyneuropathy, unspecified | CPT/HCPCS: 20600 ==

== ENCOUNTER → 2023-09-11 12:23 | Outpatient (CLI) | payer MEDICARE, SELFPAY ==
--- NOTE | 2023-09-11 12:00 | DI.RAD_ITS ---
Exam(s) XR FOOT RT COMPLETE EXAM: XR FOOT RT COMPLETE CLINICAL HISTORY: right 2nd toe M10.9 GOUT M20.41 HAMMER TOE. TECHNIQUE: 2D digital imaging was performed of the right foot. Three images were obtained. AP, obl ique and lateral views were obtained. COMPARISON: CR XR FOOT RT COMPLETE from 11/01/2022 FINDINGS: BONES: No acute fracture is present. No bony destructive lesion is seen. There is an enthesophyte at the posterior calcaneus. There is a tiny plantar calcaneal spur. JOINTS: No dislocation present. There is a hammertoe deformity of the 2nd, 3rd and 4th toes. The 1st metatarsophalangeal joint is well maintained. SOFT TISSUE: Normal. IMPRESSION: No acute abnormality. DATA REPOSITORY: RADIATION DOSE DELIVERED:
== END ==
PROVIDERS: PCP Family Medicine; Visit Provider Podiatrist
DX: M10.9 Gout, unspecified (principal); M20.41 Other hammer toe(s) (acquired), right foot
CPT/HCPCS: 20600; 36415; 73630; 84550; 85025

== ENCOUNTER 2023-09-11 12:32 | Outpatient (CLI) | payer MEDICARE, SELFPAY ==
[2023-09-11 12:49] LABS: Abs Immature Grans 0.02 10^3/uL (0.0-0.06); Absolute Basophil Count 0.05 10^3/uL (0.0-0.2); Absolute Eosinophil Count 0.12 10^3/uL (0.0-0.7); Absolute Lymphocyte Count 1.38 10^3/uL (1.2-3.4); Absolute Monocyte Count 0.49 10^3/uL (0.1-0.8); Absolute Neutrophil Count 4.19 10^3/uL (1.2-6.7); Basophils % 0.8 %; Eosinophils % 1.9 %; HCT 38.2 % (40.0-50.0); HGB 12.9 g/dL (13.5-17.5); Immature Grans % 0.3 %; Lymphocytes % 22.1 %; MCH 29.4 pg (27.0-33.0); MCHC 33.8 % (32.0-36.0); MCV 87 fL (80-95); MPV 8.7 fL (8.0-11.0); Monocytes % 7.8 %; Neutrophils % 67.1 %; Platelet Count 271 10^3/uL (130-400); RBC 4.39 10^6/uL (4.36-5.78); RDW 12.5 % (11.8-14.1); RDW-SD 39.9 fL; WBC 6.25 10^3/uL (4.4-10.8)
[2023-09-11 13:33] LABS: Uric Acid 8.3 mg/dL (3.5-7.2)
== END 2023-09-11 12:33 | disposition home or self-care (01) ==
LOC: LBO 12:32
PROVIDERS: PCP Family Medicine; Visit Provider Podiatrist
DX: E79.0 Hyperuricemia without signs of inflammatory arthritis and tophaceous disease (principal); L03.90 Cellulitis, unspecified
CPT/HCPCS: 36415; 84550; 85025

== ENCOUNTER → 2023-09-25 13:37 | Outpatient (BNVA) | payer MEDICARE, SELFPAY | PROVIDERS: PCP Family Medicine; Referring Provider Family Medicine; Visit Provider Podiatrist | DX: M10.9 Gout, unspecified (principal); E11.40 Type 2 diabetes mellitus with diabetic neuropathy, unspecified; M20.41 Other hammer toe(s) (acquired), right foot; M79.671 Pain in right foot; M21.611 Bunion of right foot; M21.612 Bunion of left foot | CPT/HCPCS: 99214 ==

== ENCOUNTER 2024-01-14 11:17 | Outpatient (CLI) | payer MEDICARE, SELFPAY ==
[2024-01-14 11:03] LABS: Uric Acid 6.9 mg/dL (3.5-7.2)
== END 2024-01-14 11:18 | disposition home or self-care (01) ==
LOC: LBO 11:19
PROVIDERS: PCP Family Medicine; Visit Provider Family Medicine
DX: M10.9 Gout, unspecified (principal)
CPT/HCPCS: 36415; 84550

== ENCOUNTER → 2024-04-15 13:25 | Outpatient (BNVA) | payer MEDICARE, SELFPAY | PROVIDERS: PCP Family Medicine; Referring Provider Family Medicine; Visit Provider Podiatrist | DX: L89.891 Pressure ulcer of other site, stage 1 (principal); M21.611 Bunion of right foot; M21.612 Bunion of left foot; M79.671 Pain in right foot; M20.41 Other hammer toe(s) (acquired), right foot; E11.40 Type 2 diabetes mellitus with diabetic neuropathy, unspecified; M10.9 Gout, unspecified; M79.675 Pain in left toe(s); R20.2 Paresthesia of skin | CPT/HCPCS: 99213 ==

== ENCOUNTER 2024-04-29 02:28 | Outpatient (CLI) | payer MEDICARE, SELFPAY ==
[2024-04-29 10:31] LABS: Anion Gap 10.6 mmol/L (3-11); BUN 38 mg/dL (7-18); CO2 26.4 mmol/L (21.0-32.0); CREATININE 2.6 mg/dL (0.70-1.30); Calcium 8.6 mg/dL (8.5-10.1); Chloride 104 mmol/L (98-107); Estimated GFR 24.78 (mL/min/1.73m2); Glucose 288 mg/dL (74-106); Sodium 141 mmol/L (136-145)
== END 2024-04-29 02:29 | disposition home or self-care (01) ==
PROVIDERS: PCP Family Medicine; Referring Provider Family Medicine; Visit Provider Family Medicine
DX: E11.9 Type 2 diabetes mellitus without complications (principal)
CPT/HCPCS: 36415; 80048; 83036

== ENCOUNTER → 2024-05-27 14:30 | Outpatient (BNVA) | payer MEDICARE, SELFPAY | PROVIDERS: PCP Family Medicine; Referring Provider Family Medicine; Visit Provider Podiatrist | DX: M10.9 Gout, unspecified (principal); E11.40 Type 2 diabetes mellitus with diabetic neuropathy, unspecified; M20.41 Other hammer toe(s) (acquired), right foot; M79.671 Pain in right foot; M21.611 Bunion of right foot; M21.612 Bunion of left foot; L89.891 Pressure ulcer of other site, stage 1; M21.42 Flat foot [pes planus] (acquired), left foot; R60.0 Localized edema; M79.675 Pain in left toe(s) | CPT/HCPCS: 99213 ==

== ENCOUNTER → 2024-07-28 09:02 | Outpatient (BNVA) | payer MEDICARE, SELFPAY | PROVIDERS: PCP Family Medicine; Referring Provider Family Medicine; Visit Provider Podiatrist | DX: E11.40 Type 2 diabetes mellitus with diabetic neuropathy, unspecified (principal); M79.671 Pain in right foot; M72.2 Plantar fascial fibromatosis; M20.41 Other hammer toe(s) (acquired), right foot; M21.611 Bunion of right foot; M21.612 Bunion of left foot; M10.9 Gout, unspecified; N18.9 Chronic kidney disease, unspecified | CPT/HCPCS: 99213 ==

== ENCOUNTER → 2024-09-01 09:02 | Outpatient (BNVA) | payer MEDICARE, SELFPAY | PROVIDERS: PCP Family Medicine; Referring Provider Family Medicine; Visit Provider Podiatrist | DX: M72.2 Plantar fascial fibromatosis (principal); M79.671 Pain in right foot; M79.672 Pain in left foot; E11.42 Type 2 diabetes mellitus with diabetic polyneuropathy; M20.41 Other hammer toe(s) (acquired), right foot; M20.42 Other hammer toe(s) (acquired), left foot; M21.611 Bunion of right foot; M21.612 Bunion of left foot | CPT/HCPCS: 99213 ==

== ENCOUNTER → 2024-12-16 08:24 | Outpatient (BNVA) | payer MEDICARE, SELFPAY | PROVIDERS: PCP Family Medicine; Referring Provider Family Medicine; Visit Provider Physical Therapy Assistant | DX: Z12.11 Encounter for screening for malignant neoplasm of colon (principal); Z86.0101 Personal history of adenomatous and serrated colon polyps | CPT/HCPCS: S0285 ==

== ENCOUNTER 2024-12-31 07:36 | Day surgery (SDC) | payer MEDICARE, SELFPAY ==
--- NOTE | 2024-12-30 16:30 | W.PM.DSUDISC ---
Date of service: 12/31/24 Discharge Plan Disposition Patient Disposition: Home Condition: Good Discharge Details Reason For Visit: Screening colonoscopy Attending Provider: Sheng Levin Primary Care Provider: Teofilo Finley Home Meds and New Rx's Prescriptions: Continued [id number] 16-5-7-300-150 mg capsule,delayed release(DR/EC) 1 cap PO DAILY irbesartan-hydrochlorothiazide 150-12.5 mg tablet 2 tab PO DAILY mometasone 0.1 % cream 1 applic topical DAILY PRN (Reason: itching) Qty: 15 2RF Rx Instructions: 03/28/20 Prescribed by ENT, Dr Zapata. Apply to affected area to ears daily prn allopurinol 100 mg tablet 100 mg PO DAILY Qty: 90 3RF atorvastatin 20 mg tablet 20 mg PO HS Qty: 90 3RF (DME) lancets [OneTouch UltraSoft Lancets] 1 EACH misc 1 ea Miscellaneous TID Patient Comments: pt. took BS at home, 167 [id number] [Excedrin Migraine] 1 EACH tablet 1 ea PO PRN cholecalciferol (vitamin D3) 1,000 UNIT tablet 1,000 unit PO DAILY (DME) OneTouch Ultra Test 1 EACH strip 1 ea Miscellaneous DAILY Qty: 100 Rx Instructions: 790.29; 277.7 Monitor abnormal blood sugar glipizide 5 mg tablet 5 mg PO DAILY Qty: 90 3RF semaglutide 7 mg tablet 7 mg PO DAILY Qty: 90 3RF Discontinued bisacodyl [Dulcolax (bisacodyl)] 5 mg tablet,delayed release (DR/EC) 5 mg PO ONCE Qty: 4 0RF Rx Instructions: Take per colonoscopy instructions provided by ordering providers office polyethylene glycol 3350 17 gram/dose powder 17 g PO ONCE Qty: 238 0RF Rx Instructions: Take per colonoscopy instructions provided by ordering providers office Discharge Instructions Instructions: Colon polyps, Diverticulosis Additional Instructions: Dae, was nice seeing you today, and I hope you feel well after the procedure. Things went very smoothly. I did find, and removed, a total of 4 polyps today. These are all quite small, and certainly nothing to worry about. I will send these to the pathologist for them to review. Those results will take about a week or 2, but once my office has that information, we will be in touch with recommendations for your next colonoscopy. Incidentally, you also have some sigmoid diverticulosis. Diverticula are little weak spots in the muscular layer of the colon wall. This causes little pockets or pouches to form. The pockets are called diverticula. Sigmoid refers to the particular area of the colon where years are located. This is the most common location. I will attach some basic information here about diverticulosis as well as colon and rectal polyps. If you need anything at all, or have any questions, please do not hesitate to call. 1. If tolerated, consume a soft, low fiber diet for 1-2 days. 2[address] Do not drive, drink alcohol, operate machinery, make critical decisions, or do activities that require coordination or balance for 24 hours. 3. Because air was put into your colon during the procedure, expelling air from your rectum (passing gas or farting) is normal. 4. You may not have a bowel movement for 1-3 days because of the colonoscopy prep. This is normal. 5. Go directly to the emergency room if you notice any of the following: Develop chills (warm to touch), or if you have a thermometer and your temperature is above 101 Difficulty breathing or difficultly swallowing Persistent vomiting Severe abdominal pain, other than gas cramps Severe chest pain Black, tarry stools Any bleeding – exceeding one tablespoon 6. Call your physician if the site where your intravenous was started becomes red, swollen, painful, and warm to touch. 7. Your physician has reviewed your pre-procedure medications. Please continue to take those medications as previously ordered. You will be given specific information/education regarding any changes to your medications before leaving. Stand Alone Forms: Anesthesia Discharge Inst[facility] Gregg Christie (DSU), Portal Information Activity:: Activity as Tolerated Diet:: As Tolerated Discharge Orders Discharge Orders: Discharge Order (Routine); Ordered 12/30/24 Ordered By: Sheng Levin DS: Diagnosis Discharge Diagnosis (1) Screening for colon cancer: Status: Acute Asessment and Plan: Follow-up on polypectomy results
--- NOTE | 2024-12-30 16:31 | COLE_ITS ---
Date of service: 12/31/24 Time of Service: 09:49 Colonoscopy Report Date of procedure: 12/31/24 Pre-op diagnosis general: Screening colonoscopy Post-op diagnosis procedure note: other (Colon polyps, diverticulosis) Procedure: Colonoscopy with polypectomy Surgeon: Sheng Levin Anesthesia Type: General:No Airway Estimated blood loss (mL): 10 Pathology: other (0.25 cm flat ascending colon polyp x 2 (single specimen) 0.25 cm flat polyp at 120 cm, 0.25 cm flat polyp at 25 cm) Complications: None Disposition: same day Indications: Dae is a 74-year-old male who needs a screening colonoscopy Prep: Miralax/Dulcolax Procedure Start Time: :11 Procedure End Time: 09:39 Retraction Time: 17 Findings: Sigmoid diverticulosis, colon polyps Procedure Description: After the induction of anesthesia, and with the patient in left lateral decubitus position, I began by performing an external anorectal exam. Perineum and skin were normal, as was the anal verge. There was no evidence of external hemorrhoids. Next, I performed a digital rectal exam. This was normal. Next, I advanced a colonoscope into the rectal vault. I performed retroflexion. This appeared normal. Using irrigation, I then advanced the colonoscope beyond the rectal folds and into the sigmoid colon before advancing towards the cecum. There is sigmoid diverticulosis. The scope was noted to be in the cecum by identification of the ileocecal valve and appendiceal orifice. I then began withdrawing the colonoscope using repeated irrigation as necessary for full evaluation of the colonic mucosa. Within the ascending colon, there were 2 polyps. Each of these was less than 0.25 cm. These were both removed with cold forceps without any issues. These were sent as a single specimen labeled ascending colon. Another 0.25 cm flat polyp was found around 120 cm past the anal verge. This was also removed with cold forceps without any problems. Around 25 cm from the anal verge was another polyp. This was also quite small, well less than 0.25 cm. This was also flat and removed without any difficulty using cold forceps. Once the scope was withdrawn to the level of the rectum, great care was taken to examine portions of the rectal folds. Finally, the scope was withdrawn and the patient was brought to the same-day surgery recovery unit as the anesthetic wore off. The findings and instructions were shared with the patient prior to discharge. New Baden Bowel Prep New Baden Bowel Prep Right Colon: 3 Left Colon: 3 Transverse Colon: 3 Total Score: 9
[2024-12-31 08:14] VITALS: BP 132/85; PULSE 88; RESP 16; TEMP 36.3; O2SAT 96
--- NOTE | 2024-12-31 08:32 | W.ANESPRE ---
General Info Date of Service Date Performed: 12/31/24 Height: 5 ft 11 in Weight: 102.9 kg Body Mass Index (BMI): 31.6 Surgical Procedure: Operation Date: 12/31/24 09:05 Proposed Procedure Side Surgeon gonsalo Levin MD Meds Allergies and Home Medications Allergies Allergy/AdvReac Type Severity Reaction Status Date / Time diltiazem AdvReac Intermediate urinary Verified 12/31/24 08:10 frequency lisinopril AdvReac Intermediate COUGH Verified 12/31/24 08:10 Home Medication Medication Instructions Recorded zsgmqjv-wkeqhaclmkdib-vvomrzuw 250 1 ea PO PRN 06/03/12 mg-250 mg-65 mg tablet (Excedrin Migraine) lancets (OneTouch UltraSoft 06/03/12 Lancets) cholecalciferol (vitamin D3) 25 1,000 unit PO DAILY 07/19/13 mcg (1,000 unit) tablet blood sugar diagnostic ([employer] EducationTouch #100 strips 05/20/14 Ultra Test strips) mometasone 0.1 % topical cream 1 applic topical DAILY PRN itching 04/02/22 #15 grams B6 35 mg-levomefolate 3 1 cap PO DAILY 07/29/23 mg-mecobalam 2 [id number]-GVR-bmnqhaq capsule del rel (EB-N6 DR) glipizide 5 mg tablet 5 mg PO DAILY #90 tabs 04/20/24 semaglutide 7 mg tablet 7 mg PO DAILY #90 tabs 06/01/24 irbesartan 150 2 tab PO DAILY 08/02/24 mg-hydrochlorothiazide 12.5 mg tablet allopurinol 100 mg tablet 100 mg PO DAILY #90 tabs 10/25/24 atorvastatin 20 mg tablet 20 mg PO HS #90 tabs 10/25/24 Current Visit Medications: Current Medications Generic Name Dose Route Start Last Admin Trade Name Freq PRN Reason Stop Dose Admin Ringer's Solution 1,000 mls @ 80 mls/hr 12/31/24 06:00 IV 12/31/24 23:59 INFUSION REILLY IV Miscellaneous Supplies 1 each 12/31/24 06:00 Iv Access IV 12/31/24 23:59 DIRECTED REILLY Sodium Chloride 0 ml 12/31/24 06:00 Normal Saline Flush 10 Ml Syr IV 12/31/24 23:59 PRN PRN Sodium Chloride 0 ml 12/31/24 06:00 Normal Saline 10 Ml Vial IJ 12/31/24 23:59 DIRECTED PRN Sterile Water 0 ml 12/31/24 06:00 Water,Injection,Sterile 10 Ml Vial IJ 12/31/24 23:59 DIRECTED PRN PFSH Active Problems Active Problems: Problem Status Onset Code Plantar fasciitis, right Acute M72.2 Hypertension Chronic I10 Pressure injury of left foot, stage 1 Acute L89.891 Pain in right foot Acute M79.671 Hammertoe of right foot Acute M20.41 Gout Chronic M10.9 Diabetes mellitus with neuropathy Acute E11.40 Bunion, left foot Acute M21.612 Bunion of great toe of right foot Acute M21.611 Chronic eczematoid otitis externa of both ears Acute H60.8X3 Thyroid nodule Acute E04.1 Hyperplastic colon polyp Acute ~01/21/22 K63.5 Tubular adenoma of colon Acute ~01/21/22 D12.6 Screening for colon cancer Acute Z12.11 Stiffness of right hip joint Acute M25.651 Epidermoid cyst Acute L72.0 Compound nevus of face Acute D22.30 Sessile colonic polyp Acute 01/21/22 K63.5 Undiagnosed cardiac murmurs Chronic 10/17/98 R01.1 Cataracts, bilateral Chronic 03/13/15 H26.9 Chronic kidney disease, stage III (moderate) Chronic 04/25/10 N18.3 Dysmetabolic syndrome X Chronic 06/16/98 E88.81 Hyperlipidemia Chronic 06/03/11 E78.5 Other atopic dermatitis Chronic 06/03/11 L20.89 Obesity (BMI 30.0-34.9) Chronic 06/03/11 E66.9 Proteinuria Chronic 10/02/12 R80.9 Type 2 diabetes mellitus without complications Chronic 03/13/15 E11.9 Unspecified nontoxic nodular goiter Chronic 11/19/11 E04.9 Axillary hidradenitis suppurativa Acute 09/20/13 L73.2 Hammer toes of both feet Acute M20.41, M20.42 Post-void dribbling Acute N39.43 Medical History Medical History Other atopic dermatitis (06/03/11) Essential hypertension (05/17/98) GOAL <130/80 Surgical History Surgical History H/O removal of cyst (~10/2021) 10/30/21 follicular cyst mid back Hx of hand surgery L palm, work accident Colonoscopy - IV Sedation (05/19/15) 01/2021- Placido Thayer-fragments of tubular adenoma Tobacco Smoking/Tobacco Use Status: Former Tobacco Use Smokeless tobacco user: chewing tobacco and snuff Passive smoking exposure: No Alcohol Alcohol Intake: former Substance Use Substance use: Never Substance use type: does not use Counseling provided: other (Declined to answer question regarding marijuana use) Vital Signs and Lab Results Vital Signs Most Recent Vital Signs in EMR: Most Recent Vital Signs Temp Pulse Resp BP Pulse Ox 36.3 C L 88 16 132/85 96 12/31/24 08:14 12/31/24 08:14 12/31/24 08:14 12/31/24 08:14 12/31/24 08:14 Point of Care Results Point of Care Results: Finger Stick Blood Glucose 169 12/31/24 07:59 Anesthesia Assessment and Plan Anesthesia History Personal History: No History of Anesthesia Complications Family History: No Family History of Anesthesia Complications Exercise Tolerance Exercise Tolerance: Metabolic Equivalents>4 Cardiac & Pulmonary Exam Cardiac Exam: Heart Murmur Present (Diagnosed around 1965. No significant changes in physical status. Recommend a surveilance ECHO at patients convenience. ) Pulmonary Exam: Clear Bilateral Breath Sounds Implantable Cardiac Device Does patient have a Pacemaker or an ICD?: No Airway Exam Known Difficult Airway: No Mallampati Class: 4 Mouth Opening: Normal (> 3cm) Thyromental Distance: Greater than 3 cm Neck Range of Motion: Full ROM Neck Circumference: Thick Teeth Condition: Removable Dentures/Plates Upper and Edentulous ASA Classification ASA Score: ASA 3 Emergency Case?: No NPO Status NPO Status: NPO Clears >2 hours, Solids >8 hours Anesthesia Plan Resuscitation Status: Full Code Anesthesia Technique: General Anesthesia Airway Planned: Natural Airway Monitors Used: Standard Monitors
[2024-12-31 08:34] VITALS: BMI 31.6
[2024-12-31] MEDS: Lactated Ringers 1,000 ML 80 ML IV (08:35)
--- NOTE | 2024-12-31 09:26 | BOWEL_PTH ---
PATIENT: Dae Marrero LOC: [facility] U#:[id number] AGE/SX: 74/M ROOM: RE12/31/[address]: Sheng Levin MD : [id number] BED: DIS: 12/31/2024 SPEC #: [id number] RECD: 12/31/24 12:13 STATUS: JUAN F RE #: [id number] ANTHONY: 12/31/24 09:[address]: Sheng Levin DEPT: Surgical Specimen RECD BY: Kellie Bautista ENTERED: 12/31/24 12:15 SP TYPE: Bowel OTHR DR: Teofilo Finley DO Tissues: 1 - BIOPSY BOWEL 2 - BIOPSY BOWEL 3 - BIOPSY BOWEL Procedures: GROSS AND MICRO LEVEL 4 Comments: [id number]
[2024-12-31 09:42] VITALS: BP 94/64; PULSE 85; RESP 17; TEMP 36.5; O2SAT 95
--- NOTE | 2024-12-31 09:53 | ANES.POST_ITS ---
Postoperative Evaluation Date, Time and Location Date Performed: 12/31/24 Time Performed: 09:53 Patient Location: Day Surgery Unit Vital Signs Most Recent Imported Vital Signs: Most Recent Vital Signs Temp Pulse Resp BP Pulse Ox 36.5 C 85 17 94/64 L 95 12/31/24 09:42 12/31/24 09:42 12/31/24 09:42 12/31/24 09:42 12/31/24 09:42 Pain Score Most Recent Pain Score: Most Recent Pain Score Pain Level 0 12/31/24 09:42 Assessment Mental Status: Awake (Alert & Oriented to Patient Baseline) Airway and Respiratory Function: Patent airway with normal (patient baseline) respiratory exam Cardiovascular Function: Hemodynamically Stable Hydration Status: Adequately Hydrated Nausea & Vomiting: No Nausea or Vomiting Pain: Pt. Denies Any Pain Peripheral Nerve Block: Patient did not receive a nerve block Teaching Patient Teaching: Advised to seek followup for the following concerns (See ex planation) Concerns: Other (Should most likely have an ECHO at his convenience. I will forward to Dr. Finley. )
[2024-12-31 10:03] VITALS: BP 132/76; PULSE 81; RESP 16; TEMP 36.2; O2SAT 96
== END 2024-12-31 10:15 | disposition home or self-care (01) ==
LOC: SUR 07:38
PROVIDERS: PCP Family Medicine; Visit Provider Surgery
PROC: 0DJD8ZZ Inspection of Lower Intestinal Tract, Via Natural or Artificial Opening Endoscopic (ICD-10-PCS; CPT 45378; principal; 2024-12-31 09:00)
DX: Z12.11 Encounter for screening for malignant neoplasm of colon (principal); D12.2 Benign neoplasm of ascending colon; D12.3 Benign neoplasm of transverse colon; K57.30 Diverticulosis of large intestine without perforation or abscess without bleeding
CPT/HCPCS: 45380; 88305; J2704

== ENCOUNTER 2025-01-15 06:42 | Emergency (ER) | payer MEDICARE, SELFPAY ==
[2025-01-15 06:46] VITALS: BP 175/71; PULSE 97; RESP 18; TEMP 36.5; O2SAT 98
--- NOTE | 2025-01-15 06:59 | W.ED.GENAD ---
Discharge Plan Disposition Patient Disposition: Home Discharge Details Clinical Impression: Cyst of right kidney, Acute left flank pain, Enlarged prostate Primary Care Provider: Teofilo Finley ED Provider: Yovany Baez Home Meds and New Rx's Prescriptions: Continued EB-N6 73-1-0-300-150 mg capsule,delayed release(DR/EC) 1 cap PO DAILY irbesartan-hydrochlorothiazide 150-12.5 mg tablet 2 tab PO DAILY mometasone 0.1 % cream 1 applic topical DAILY PRN (Reason: itching) Qty: 15 2RF Rx Instructions: 03/28/20 Prescribed by ENT, Dr Zapata. Apply to affected area to ears daily prn allopurinol 100 mg tablet 100 mg PO DAILY Qty: 90 3RF atorvastatin 20 mg tablet 20 mg PO HS Qty: 90 3RF (DME) lancets [OneTouch UltraSoft Lancets] 1 EACH misc 1 ea Miscellaneous TID Patient Comments: pt. took BS at home, 167 dnwghln-yacqbdshuwmae-lhmxverj [Excedrin Migraine] 1 EACH tablet 1 ea PO PRN cholecalciferol (vitamin D3) 1,000 UNIT tablet 1,000 unit PO DAILY (DME) OneTouch Ultra Test 1 EACH strip 1 ea Miscellaneous DAILY Qty: 100 Rx Instructions: 790.29; 277.7 Monitor abnormal blood sugar glipizide 5 mg tablet 5 mg PO DAILY Qty: 90 3RF semaglutide 7 mg tablet 7 mg PO DAILY Qty: 90 3RF Discharge Instructions Additional Instructions: You are seen in the emergency department for pain in your left flank. Your CAT scan showed no signs of any dangerous processes in your abdomen. You did have a simple right-sided cyst on your kidney. There is no need for follow-up on this incidental finding. You are found to have an enlarged prostate. As we discussed if you develop difficulty urinating or fevers please return to the emergency department. A referral has been placed for you to see a urologist. Please follow-up with your primary care provider as needed next week. For your pain please take medications as follows: 1. Take acetaminophen (Tylenol), 1,000 mg (two 500 mg tabs) every 6 hours Stand Alone Forms: Portal Information Discharge Data Discharge Date/Time-TO BE ENTERED AT DEPARTURE: 01/15/25 10:42 HPI General Date/Time Provider Initiated Documentation: 01/15/25 06:59. HPI Narrative: MDM Broad differential on this 74-year-old normothermic and not tachycardic male with left-sided flank pain. Ureterolithiasis is certainly in the differential so anticipate patient will require CT scan. No rash to flank to suggest zoster. No pain out of proportion to suggest necrotizing soft tissue infection. Patient is not peritonitic to suggest increased risk for bowel obstruction however given that he is proximately 2 weeks status post colonoscopy will obtain CT scan to assess for complication. No cough to suggest referred pain from pneumonia. No chest pain to suggest ACS so I did not order an ECG. No loss of bowel or bladder control to suggest cauda equina and no saddle anesthesia. No history of recent spinal instrumentation nor anticoagulation to suggest increased risk for spinal epidural hematoma. No fevers nor midline spinal tenderness to suggest increased risk for epidural abscess. No lower extremity sensory changes to suggest ruptured AAA. No fever to suggest pyelonephritis. No symptoms to suggest Young's gangrene. No dysuria or frequency make my suspicion lower for UTI. Will reassess following labs and imaging. 7:09 AM Urinalysis showing trace hematuria. Nitrate negative. No leuk esterase. 8:08 AM Comprehensive metabolic panel showing mild hyperglycemia but no anion gap and normal bicarbonate?test not consistent with DKA. CKD but no superimposed CORINNE. Normal reassuring LFTs. CBC lacks anemia thrombocytopenia and leukocytosis. 10:[address] scan resulted showing an enlarged prostate for which radiology recommended urology consult. Patient had normal appendix. He had a simple right renal cyst with radiology recommending no follow-up imaging. Patient feels improved. Will discuss return indications. We discussed that he should return for difficulty urinating fevers or any rash to his flank. Advised healthy coordinator Erika to have the patient seen by follow-up with urology in the setting of his enlarged prostate within the month. I advised patient of his right renal cyst. We discussed that he should follow-up with his PCP next week. Patient understood his return indications and was discharged with an empiric trial of expectant outpatient management. HPI This is a patient presenting with left lower hip pain. The patient reports experiencing pain in his left lower hip, which began on 01/10/2025. Initially, he was uncertain if the discomfort originated from his lower back or hip, but the pain subsequently subsided. However, it has since returned with increased intensity, particularly during the night, causing him to frequently change positions. The pain is described as non-radiating and is exacerbated by certain movements. He also reports frequent urination at night, which is accompanied by increased pain upon lying down. The pain is predominantly localized to his back, with a dull ache present on both sides. He has not taken any medication for the pain today. He reports no recent falls, trauma, or unusual physical activity prior to the onset of the pain. He also reports no nausea, vomiting, hematuria, dysuria, chest pain, difficulty breathing, abdominal pain, or tenderness. He has not experienced any loss of bowel or bladder control. He underwent a colonoscopy on 12/31/2024 and notes that his bowel movements have not yet returned to their normal pattern. He has no history of smoking or kidney stones. He has been experiencing a cough and rhinorrhea but has not sought treatment for these symptoms. PAST SURGICAL HISTORY: Colonoscopy on 12/31/2024 Exam General: Well-appearing in no acute distress speaking in complete sentences. Head: Normocephalic, atraumatic. Eye: Extraocular eye movements intact. No conjunctival injection. No scleral icterus. Ear, nose, mouth, throat: Grossly normal inspection. Normal voice, handling secretions normally. Neck: Trachea midline. Cardiovascular: Well-perfused distal extremities. Respiratory: Nonlabored respiration. Clear lungs bilaterally. Back: Left-sided flank tenderness. No rash to back. No CVA tenderness. No midline thoracic nor lumbar spinal tenderness. Gastrointestinal: Nondistended abdomen. Soft. Nontender. No rebound. No guarding. Musculoskeletal: No edema. Moving all 4 extremities spontaneously. 5 out of 5 bilateral lower extremity strength. Skin: Normal for age and race, grossly normal temperature and turgor. No acute rash. Neurologic: Alert and appropriate, no apparent acute deficits. Related Data Home Medications ?Medication ?Instructions ?Recorded ?Confirmed falprsz-muyqcyvzweuew-lfttvlhs 250 1 ea PO PRN 06/03/12 01/15/25 mg-250 mg-65 mg tablet (Excedrin Migraine) lancets ([employer] UltraSoft 06/03/12 10/25/24 Lancets) cholecalciferol (vitamin D3) 25 1,000 unit PO DAILY 07/19/13 01/15/25 mcg (1,000 unit) tablet blood sugar diagnostic ([employer] #100 strips 05/20/14 10/25/24 Ultra Test strips) mometasone 0.1 % topical cream 1 applic topical DAILY PRN itching 04/02/22 01/15/25 #15 grams B6 35 mg-levomefolate 3 1 cap PO DAILY 07/29/23 01/15/25 mg-mecobalam 2 lu-PTP-cxqhyrl capsule del rel (EB-N6 DR) glipizide 5 mg tablet 5 mg PO DAILY #90 tabs 04/20/24 01/15/25 semaglutide 7 mg tablet 7 mg PO DAILY #90 tabs 06/01/24 01/15/25 irbesartan 150 2 tab PO DAILY 08/02/24 01/15/25 mg-hydrochlorothiazide 12.5 mg tablet allopurinol 100 mg tablet 100 mg PO DAILY #90 tabs 10/25/24 01/15/25 atorvastatin 20 mg tablet 20 mg PO HS #90 tabs 10/25/24 01/15/25 Previous Rx's ?Medication ?Instructions ?Recorded mometasone 0.1 % topical cream 1 applic topical DAILY PRN itching 04/02/22 #15 grams glipizide 5 mg tablet 5 mg PO DAILY #90 tabs 04/20/24 semaglutide 7 mg tablet 7 mg PO DAILY #90 tabs 06/01/24 allopurinol 100 mg tablet 100 mg PO DAILY #90 tabs 10/25/24 atorvastatin 20 mg tablet 20 mg PO HS #90 tabs 10/25/24 Allergies Allergy/AdvReac Type Severity Reaction Status Date / Time diltiazem AdvReac Intermediate urinary Verified 01/15/25 06:50 frequency lisinopril AdvReac Intermediate COUGH Verified 01/15/25 06:50 General Stated Complaint: FlankPain ENID: 3 Course Vital Signs Vital signs: Vital Signs Temperature 36.5 C 01/15/25 06:46 Pulse 97 H 01/15/25 06:46 Respiratory Rate 18 01/15/25 06:46 Blood Pressure 175/71 H 01/15/25 06:46 Pulse Oximetry 98 01/15/25 06:46 Temperature 36.5 C 01/15/25 06:46 Temperature Source Oral 01/15/25 06:46 Pulse 97 H 01/15/25 06:46 Respiratory Rate 18 01/15/25 06:46 Blood Pressure 175/71 H 01/15/25 06:46 Pulse Oximetry 98 01/15/25 06:46 Oxygen Delivery Method Room Air 01/15/25 06:46 Oxygen Flow Rate 0 01/15/25 06:46 Pain Level 6 01/15/25 06:46 PFSH All Active Problems (Updated 01/15/25 @ 10:13 by Yovany Baez MD) Enlarged prostate (Acute) Acute left flank pain (Acute) Cyst of right kidney (Acute) Plantar fasciitis, right (Acute) Hypertension (Chronic) 06/15/24 [facility] [place] Nephrology note Pressure injury of left foot, stage 1 (Acute) Pain in right foot (Acute) Hammertoe of right foot (Acute) Gout (Chronic) Diabetes mellitus with neuropathy (Acute) Bunion, left foot (Acute) Bunion of great toe of right foot (Acute) Chronic eczematoid otitis externa of both ears (Acute) Thyroid nodule (Acute) Hyperplastic colon polyp (Acute ~01/21/22) Colon sigmoid, Polyps x9 Tubular adenoma of colon (Acute ~01/21/22) Colon ascending, Fragments of tubular adenoma x Colon transverse, Tubular adenoma x2 Screening for colon cancer (Acute) Stiffness of right hip joint (Acute) Epidermoid cyst (Acute) Compound nevus of face (Acute) Sessile colonic polyp (Acute 01/21/22) Colon, ascending Fragments of sessile adenoma Undiagnosed cardiac murmurs (Chronic 10/17/98) Cataracts, bilateral (Chronic 03/13/15) Chronic kidney disease, stage III (moderate) (Chronic 04/25/10) Dr Combs 12/16/12, proteinuria confirmed, L kidney smaller, good control, fluctuation due to NSAID Dysmetabolic syndrome X (Chronic 06/16/98) FBS 127 11/19/11; high TG; BP rx Hyperlipidemia (Chronic 06/03/11) high TG but <200; low HDL; total 156 Other atopic dermatitis (Chronic 06/03/11) Obesity (BMI 30.0-34.9) (Chronic 06/03/11) goal: 235 Proteinuria (Chronic 10/02/12) prot/cr ratio 0.62 09/2012 (nl <0.2, low grade 0.2-1.0); 934 mg/24 hr 09/2012 (nl <166): low grade; micral 499 DH 11/2012; 436 05/2013; imp 07/2014 on ARB Type 2 diabetes mellitus without complications (Chronic 03/13/15) multiple home FS > 140; highest A1c 9.1 Unspecified nontoxic nodular goiter (Chronic 11/19/11) 13 mm thyroid cyst/nodule seen on Chest CT 11/2011; GOITER, F/U MARIANA MCKENNA; f/u yearly Dr Mckenna Axillary hidradenitis suppurativa (Acute 09/20/13) Hammer toes of both feet (Acute) Post-void dribbling (Acute) Medical History (Updated 01/15/25 @ 10:13 by Yovany Baez MD) Other atopic dermatitis (06/03/11) Essential hypertension (05/17/98) GOAL <130/80 Surgical History (Updated 12/31/24 @ 10:09 by Marija Walton) Hx of colonoscopy with polypectomy (~12/31/24) H/O removal of cyst (~10/2021) 10/30/21 follicular cyst mid back Hx of hand surgery L palm, work accident Colonoscopy - IV Sedation (05/19/15) 01/2021- Placido Thayer-fragments of tubular adenoma Family History Mother , DM,renal disease at age 60. Diabetes Father , unknown at age 82. No problems noted. Sister Age: 73 No problems noted. Brother Age: 68 No problems noted. Social History Smoking/Tobacco Use Status: Former Tobacco Use Quit Date: 02/17/98 Tobacco: How many years used: 20 Smokeless tobacco user: chewing tobacco and snuff Quit status: quit date established Smoking risk assessment performed?: Yes Alcohol Intake: former Drug use: Never Substance use type: does not use Counseling provided: other (Declined to answer question regarding marijuana use) Adopted: No Household members: spouse Housing: house Number of Children: 2 current occupation: RETIRED Pets and animals: Yes What is your relationship status?: Panel score (0-1 are the most socially isolated patients): 0 What type of physical activity do you participate in: aerobic and other Details: treadmill Duration: 30-45 minutes/day Frequency: 3-4 times per week Seatbelt use: always Drive intox or ride w/intox salesperson driver: No Working smoke detector in home: Yes Carbon monox detector in home: Yes Do you feel safe at home: Yes Do you feel safe in your relationship?: Yes Additional Social history: pt. states he lost his to Covid last February
[2025-01-15 07:05] LABS: Glucose Negative (Negative)
[2025-01-15 07:08] LABS: C & S Indicated? No; WBC Negative HPF (0-5)
[2025-01-15 07:28] LABS: Abs Immature Grans 0.03 10^3/uL (0.0-0.06); HCT 39.7 % (40.0-50.0); HGB 13.6 g/dL (13.5-17.5); Immature Grans % 0.4 %; MCH 29.8 pg (27.0-33.0); MCHC 34.3 % (32.0-36.0); MCV 87 fL (80-95); MPV 9.2 fL (8.0-11.0); Platelet Count 265 10^3/uL (130-400); RBC 4.56 10^6/uL (4.36-5.78); RDW 13.0 % (11.8-14.1); RDW-SD 40.8 fL; WBC 7.44 10^3/uL (4.4-10.8)
[2025-01-15] MEDS: ACETAMINOPHEN 1,000 MG/100 ML BAG 400 MG IVPB (07:52)
[2025-01-15] MEDS: Normal Saline 500 ML IV (07:52)
--- NOTE | 2025-01-15 08:00 | DI.CT_ITS ---
Exam(s) CT RENAL COLIC WO EXAM: CT RENAL COLIC WO CLINICAL HISTORY: Left flank pain. TECHNIQUE: Imaging Protocol: Axial computed tomography images with coronal and sagittal reformatted images were created and reviewed. COMPARISON: CT CHEST WITH CONTRAST from 11/19/2011 FINDINGS: ABDOMEN: Lung Bases: Coronary artery calcifications are present. Liver: Normal density. No measurable mass. Gallbladder and biliary tract: No radiodense calculus or biliary ductal dilation. Pancreas: Normal density, no abnormal calcifications or inflammatory process. Spleen: Normal. Kidneys: Normal size, contour and axis.No radiodense stones or obstructive uropathy. There is a 1.4 cm hypodensity on the right kidney. It is indeterminate on this noncontrast examination. Adrenal glands: No mass is seen. Lymph nodes: Within normal limits. Abdominal Aorta: Abdominal portion non-dilated. Atherosclerotic calcification is present. PELVIS: Bladder:Symmetric distention, no gross wall thickening. Bowel: There is diverticulosis of the colon without evidence of acute diverticulitis. There is no evidence of bowel obstruction or bowel wall thickening. The appendix is unremarkable. Peritoneal cavity: No ascites, collection or mesenteric inflammatory response. No free air. Reproductive organs: The prostate gland is enlarged. Bones: Within normal limits. Soft Tissues: Within normal limits. IMPRESSION: 1. There is no evidence of nephrolithiasis or obstructive uropathy. 2. 1.4 cm hypodensity in the right kidney. This likely represents a small cyst. No follow-up is recommended.. 3. Colonic diverticulosis without evidence of acute diverticulitis. 4. Enlarged prostate gland. 5. The preliminary [facility] report was reviewed. RADIATION DOSE DELIVERED: 694.81mGy.cm Total DLP DATA REPOSITORY: All CT scans at this facility are submitted to the National Radiology Data Registry (NRDR) Dose Index Registry (DIR) with the [employer] ([employer]). RADIATION OPTIMIZATION: All CT scans at this facility use at least one of these dose optimization techniques: automated exposure control; mA and/or kV adjustment per patient size (includes targeted exams where dose is matched to clinical indication); or iterative reconstruction.
[2025-01-15 08:06] LABS: ALT 20 U/L (10-49); AST 13 U/L (<34); Albumin 4.1 g/dL (3.2-5.0); Alkaline Phosphatase 92 U/L (46-116); Anion Gap 8.8 mmol/L (3-11); BUN 31 mg/dL (9-23); Bilirubin, Total 0.30 mg/dL (0.2-1.2); CO2 21.2 mmol/L (20.0-31.0); Calcium 8.8 mg/dL (8.3-10.6); Chloride 110 mmol/L (98-107); Glucose 188 mg/dL (74-106); Potassium 4.5 mmol/L (3.5-5.1); Sodium 140 mmol/L (136-145); Total Protein 6.8 g/dL (5.7-8.2)
--- NOTE | 2025-01-15 09:33 | DI.[facility]_ITS ---
PROCEDURE INFORMATION: Exam: CT Abdomen And Pelvis Without Contrast Exam date and time: 01/15/2025 8:23 AM Age: 74 years old Clinical indication: Other: Left flank pain TECHNIQUE: Imaging protocol: Computed tomography of the abdomen and pelvis without contrast. Radiation optimization: All CT scans at this facility use at least one of these dose optimization techniques: automated exposure control; mA and/or kV adjustment per patient size (includes targeted exams where dose is matched to clinical indication); or iterative reconstruction. COMPARISON: No relevant prior studies available. FINDINGS: Heart: There is calcification of the aortic valve annulus. There is calcification of the mitral valve annulus. Coronary arteries: Coronary artery calcifications may indicate coronary artery disease. Liver: Normal. No mass. Gallbladder and biliary ducts: Normal. No calcified stones. No ductal dilation. Pancreas: Normal. No ductal dilation. Spleen: Normal. No splenomegaly. Adrenal glands: Normal. No mass. Kidneys and ureters: 2.7 cm simple cyst right kidney. . No follow-up imaging recommended . There is no evidence of renal or ureteral calcifications. Stomach and bowel: Diverticulosis of the rectosigmoid. No diverticulitis . No obstruction Appendix: Normal appendix Intraperitoneal space: Unremarkable. No free air. No significant fluid collection. Vasculature: Unremarkable. No abdominal aortic aneurysm. Lymph nodes: Unremarkable. No enlarged lymph nodes. Urinary bladder: Unremarkable as visualized. Reproductive: The prostate is enlarged, greater than 6 cm. Recommend urology consult. Bones/joints: Unremarkable. No acute fracture. Soft tissues: Unremarkable. IMPRESSION: The prostate is enlarged, greater than 6 cm. Recommend urology consult. Dictated and Authenticated by: Yessenia Fleming MD. Orderin Sasha Pedroza MD
[2025-01-15 10:40] VITALS: BP 142/65; PULSE 68; RESP 12; TEMP 36.8; O2SAT 96
== END 2025-01-15 10:42 | disposition home or self-care (01) ==
PROVIDERS: Emergency Provider Emergency Medicine; PCP Family Medicine
DX: R10.A2 Flank pain, left side (principal); N28.1 Cyst of kidney, acquired; N40.0 Benign prostatic hyperplasia without lower urinary tract symptoms; I10 Essential (primary) hypertension
CPT/HCPCS: 80053; 96365; 99284; 74176; 81003; 81015; 85025; J0131